=== PATIENT | male | born 1955 | race Caucasian/White ===

== ENCOUNTER 2017-04-03 05:26 | Inpatient (IN) | payer OTHER ==
[2017-04-03] VITALS (7 sets, daily range): BP systolic 117–135; BP diastolic 73–85; PULSE 113–119; RESP 18–24; TEMP 97.6–98.3; O2SAT 98–99
[~2017-04-03] VITALS: Ht 175.3 cm; Wt 84.5 kg
[~2017-04-03 05:26] MED LIST: ALBU6.7H INH; PROM6.257 PO; SULF-154 PO; Z.0.NO CURRENT MEDS
[2017-04-03] MEDS ORDERED: JANU50TA8 PO (05:35)
[2017-04-03] MEDS ORDERED: LISI10TA3 PO (05:35)
[2017-04-03] MEDS ORDERED: SODIUM CHLORIDE 0.9% FLUSH 10 ML FLUSH IVF PRN (06:45)
--- NOTE | 2017-04-03 07:00 | RADRPT ---
EXAM DATE/TIME: 04/03/2017 06:53 [place] COMPARISON: No previous studies available for comparison. INDICATIONS : Shortness of breath and chest pain MEDICAL HISTORY : None. SURGICAL HISTORY : None. ENCOUNTER: Initial ACUITY: 4 - 6 days PAIN SCORE: 7/10 LOCATION: Bilateral chest FINDINGS: A single view of the chest demonstrates the lungs to be symmetrically aerated without evidence of mas s, infiltrate or effusion. The cardiomediastinal contours are unremarkable. Osseous structures are intact. CONCLUSION: Normal examination. Chinmay Urrutia MD on April 03, 2017 at 6:58 Board Certified Radiologist. This report was verified electronically.
[2017-04-03 07:21] LABS: AUTOMATED NEUTROPHIL # 5.8 TH/MM3 (1.8-7.7); BASOPHIL # 0.1 TH/MM3 (0-0.2); BASOPHIL % 0.7 % (0.0-2.0); EOSINOPHIL # 0.2 TH/MM3 (0-0.4); EOSINOPHIL % 2.6 % (0.0-4.0); HEMATOCRIT 37.1 % (39.0-51.0); HEMO FLAGS DIFF FINAL; LYMPH % 9.6 % (9.0-44.0); LYMPHOCYTE # 0.7 TH/MM3 (1.0-4.8); MEAN CELL VOLUME 84.4 FL (80.0-100.0); MEAN CORPUSCULAR HEMOGLOBIN 26.8 PG (27.0-34.0); MEAN CORPUSCULAR HGB CONC 31.8 % (32.0-36.0); MONO % 12.2 % (0.0-8.0); NEUT % 74.9 % (16.0-70.0); PLATELET COUNT 306 TH/MM3 (150-450); RED CELL DISTRIBUTION WIDTH 14.9 % (11.6-17.2); WHITE BLOOD COUNT 7.7 TH/MM3 (4.0-11.0)
[2017-04-03] MEDS ORDERED: FUROSEMIDE 40 MG/4 ML VIAL IV PUSH ONE (07:30)
[2017-04-03] MEDS ORDERED: ASPIRIN 81 MG CHEW TAB CHEW ONE (07:30)
[2017-04-03 07:33] LABS: APTT (PATIENT) 26.6 SEC (24.3-30.1); INTERNATIONAL NORMALIZED RATIO 1.1 RATIO; PROTHROMBIN TIME - PATIENT 11.7 SEC (9.8-11.6)
[2017-04-03 07:44] LABS: ANION GAP 7 MEQ/L (5-15); AST (GOT) 21 U/L (15-37); BICARBONATE 23.9 MEQ/L (21.0-32.0); BLOOD UREA NITROGEN 25 MG/DL (7-18); CHLORIDE 111 MEQ/L (98-107); GLOMERULAR FILTRATION RATE 55 ML/MIN (>89); MAGNESIUM 1.9 MG/DL (1.5-2.5); POTASSIUM 4.3 MEQ/L (3.5-5.1); SODIUM (NA) 142 MEQ/L (136-145)
[2017-04-03] MEDS ORDERED: NITROGLYCERIN 2% OINT 1 GM PACKET TOPICAL ONE (07:45)
[2017-04-03 07:46] LABS: ALT (GPT) 35 U/L (12-78)
[2017-04-03 07:49] LABS: ALKALINE PHOSPHATASE 66 U/L (45-117); TOTAL BILIRUBIN ADULT 0.4 MG/DL (0.2-1.0)
[2017-04-03 07:52] LABS: CREATINE KINASE 81 U/L (39-308)
--- NOTE | 2017-04-03 08:11 | PD ---
HPI . Dyspnea Chief Complaint: Chest Pain Time Seen by Provider: 07:17 Travel History International Travel<30 days: No Contact w/Intl Traveler<30days: No Traveled to known affect area: No History of Present Illness HPI This patient presents with a two-week history of increasing dyspnea. The patient reports a two-week history of increasing dyspnea. He reports dyspnea on exertion and orthopnea. He also has swelling of his ankles. He denies chest pain. He denies any previous similar history. He also denies any history of hypertension, hypercholesterolemia or heart disease. He states that his only underlying medical history is diabetes. Symptoms are moderate. No relieving factor. PFSH Past Medical History Diabetes: Yes (NIDDM) Patient Takes Glucophage: No Diminished Hearing: No Tetanus Vaccination: Unknown Influenza Vaccination: No Past Surgical History Surgical History: No Previous Surgery Social History Alcohol Use: Yes (PT STATES "OCCASIONAL") Tobacco Use: No Substance Use: No Allergies-Medications (Allergen,Severity, Reaction): Coded Allergies: No Known Allergies (Verified , 04/03/17) Reported Meds & Prescriptions Reported Meds & Active Scripts Active Reported Lisinopril 10 Mg Tab 10 Mg PO DAILY Janumet (Sitagliptin-Metformin) 50-1,000 Mg Tab 1 Tab PO BID Review of Systems Except as stated in HPI: all other systems reviewed are Neg General / Constitutional: No: Fever, Chills Cardiovascular: No: Chest Pain or Discomfort Respiratory: Positive: Shortness of Breath, Orthopnea Gastrointestinal: No: Nausea, Vomiting, Diarrhea Musculoskeletal: Positive: Edema Physical Exam Narrative GENERAL: Patient is awake and alert and able to speak in complete sentences without respiratory distress. SKIN: Warm and dry. HEAD: Atraumatic. Normocephalic. EYES: Pupils equal and round. Extraocular movements are intact. ENT: No nasal bleeding or discharge. Mucous membranes pink and moist. NECK: Trachea midline. Neck is supple. CARDIOVASCULAR: Regular rate and rhythm. Heart sounds are normal. RESPIRATORY: No accessory muscle use. Sats are 93% on room air. His lungs sound clear but diminished. GASTROINTESTINAL: Abdomen soft. Nontender. Bloated appearing. MUSCULOSKELETAL: No obvious deformities. Trace pedal edema. NEUROLOGICAL: Awake and alert. No obvious cranial nerve deficits. Motor grossly within normal limits. Normal speech. PSYCHIATRIC: Appropriate mood and affect; insight and judgment normal. Data Data Last Documented VS Vital Signs Date Time Temp Pulse Resp B/P (MAP) Pulse Ox O2 Delivery O2 Flow Rate FiO2 04/03/17 08:26 114 18 131/82 (98) 99 Room Air 04/03/17 05:30 97.6 Orders Orders Complete Blood Count With Diff (04/03/17 06:42) Comprehensive Metabolic Panel (04/03/17 06:42) B-Type Natriuretic Peptide (04/03/17 06:42) Act Partial Throm Time (Ptt) (04/03/17 06:42) Prothrombin Time / Inr (Pt) (04/03/17 06:42) Magnesium (Mg) (04/03/17 06:42) Ckmb (Isoenzyme) Profile (04/03/17 06:42) Troponin I (04/03/17 06:42) Iv Access Insert/Monitor (04/03/17 06:42) Electrocardiogram (04/03/17 06:42) Ecg Monitoring (04/03/17 06:42) Oximetry (04/03/17 06:42) Oxygen Administration (04/03/17 06:42) Chest, Single Ap (04/03/17 06:42) Sodium Chloride 0.9% Flush (Ns Flush) (04/03/17 06:45) Furosemide Inj (Lasix Inj) (04/03/17 07:30) Aspirin Chew (Aspirin Chew) (04/03/17 07:30) Nitroglycerin 2% Oint (Nitroglycerin 2% (04/03/17 07:45) Labs Laboratory Tests Test 04/03/17 07:08 White Blood Count 7.7 TH/MM3 Red Blood Count 4.40 MIL/MM3 Hemoglobin 11.8 GM/DL Hematocrit 37.1 % Mean Corpuscular Volume 84.4 FL Mean Corpuscular Hemoglobin 26.8 PG Mean Corpuscular Hemoglobin Concent 31.8 % Red Cell Distribution Width 14.9 % Platelet Count 306 TH/MM3 Mean Platelet Volume 7.9 FL Neutrophils (%) (Auto) 74.9 % Lymphocytes (%) (Auto) 9.6 % Monocytes (%) (Auto) 12.2 % Eosinophils (%) (Auto) 2.6 % Basophils (%) (Auto) 0.7 % Neutrophils # (Auto) 5.8 TH/MM3 Lymphocytes # (Auto) 0.7 TH/MM3 Monocytes # (Auto) 0.9 TH/MM3 Eosinophils # (Auto) 0.2 TH/MM3 Basophils # (Auto) 0.1 TH/MM3 CBC Comment DIFF FINAL Differential Comment Prothrombin Time 11.7 SEC Prothromb Time International Ratio 1.1 RATIO Activated Partial Thromboplast Time 26.6 SEC Blood Urea Nitrogen 25 MG/DL Creatinine 1.31 MG/DL Random Glucose 140 MG/DL Total Protein 7.1 GM/DL Albumin 3.3 GM/DL Calcium Level 8.8 MG/DL Magnesium Level 1.9 MG/DL Alkaline Phosphatase 66 U/L Aspartate Amino Transf (AST/SGOT) 21 U/L Alanine Aminotransferase (ALT/SGPT) 35 U/L Total Bilirubin 0.4 MG/DL Sodium Level 142 MEQ/L Potassium Level 4.3 MEQ/L Chloride Level 111 MEQ/L Carbon Dioxide Level 23.9 MEQ/L Anion Gap 7 MEQ/L Estimat Glomerular Filtration Rate 55 ML/MIN Total Creatine Kinase 81 U/L Troponin I 0.06 NG/ML B-Type Natriuretic Peptide 1253 PG/ML [facility] Medical Decision Making Medical Screen Exam Complete: Yes Emergency Medical Condition: Yes Interpretation(s) EKG shows a sinus rhythm with diffuse T wave inversion in the anterior leads. This T-wave inversion is new when compared to his most recent available EKG which was in 2009. Differential Diagnosis Differential diagnosis of dyspnea includes but is not limited to congestive heart failure, pneumonia, wheezing, pneumothorax, pulmonary embolism Narrative Course This patient presents with a chief complaint of dyspnea including orthopnea and dyspnea on exertion which has been getting progressively worse for the last 2 weeks. I have empirically ordered aspirin, oxygen, Lasix and nitroglycerin. CBC & BMP Diagram 04/03/17 07:08 Total Protein 7.1, Albumin 3.3 L, Calcium Level 8.8, Magnesium Level 1.9, Alkaline Phosphatase 66, Aspartate Amino Transf (AST/SGOT) 21, Alanine Aminotransferase (ALT/SGPT) 35, Total Bilirubin 0.4 BNP is 1253. Troponin is 0.06. Last Impressions Chest X-Ray 04/03/17 0642 Signed Impressions: Service Date/Time: Monday, April 03, 2017 06:53 - CONCLUSION: Normal examination. Chinmay Urrutia MD I have independently reviewed the chest x-ray. To me, he has changes compatible with early pulmonary edema. This patient will be admitted for new onset CHF. Critical Care Narrative Aggregate critical care time was 30 minutes. Time to perform other separately billable procedures was not included in the critical care time. My time did not include minutes spent treating any other patients simultaneously or on activities that did not directly contribute to the patient's treatment. The services I provided to this patient were to treat and/or prevent clinically significant deterioration due to dyspnea, pulmonary edema I provided critical care services requiring my management, as noted below: Chart data review, documentation time, medication orders and management, vital sign assessments/reviewing monitor data, ordering and reviewing lab tests, ordering and interpreting/reviewing x-rays and diagnostic studies, care of the patient and discussion of the patient with the admitting physicians Diagnosis Primary Impression: Pulmonary edema Qualified Codes: J81.0 - Acute pulmonary edema Additional Impression: Elevated troponin Admitting Information Admitting Physician Requests: Admit Condition: Stable Dorene Charles MD Apr 03, 2017 08:11
[2017-04-03] MEDS ORDERED: DEXTROSE 50% IN WATER 50 ML VIAL(D50) IV PRN (09:45)
[2017-04-03] MEDS ORDERED: SODIUM CHLORIDE 0.9% FLUSH 10 ML FLUSH IV FLUSH PRN (09:45)
[2017-04-03] MEDS ORDERED: GLUCAGON 1 MG/ML VIAL OTHER PRN (09:45)
[2017-04-03] MEDS: ASPIRIN 81 MG CHEW TAB CHEW SCH (10:00)
[2017-04-03] MEDS: ENOXAPARIN SODIUM 40 MG/0.4 ML SYRINGE SQ SCH (10:00)
[2017-04-03] MEDS: INSULIN ASPART SUPPLEMENTAL SCALE SQ SCH ×3 (11:00→20:25)
--- NOTE | 2017-04-03 15:34 | EKG ---
Date Performed: 04/03/2017 Time Performed: 06:52:56 PTAGE: 61 years EKG: SINUS TACHYCARDIA MARKED RIGHT AXIS DEVIATION RIGHT BUNDLE BRANCH BLOCK ANTEROSEPTAL MYOCAR DIAL INFARCTION ABNORMAL ECG Compared to the PREVIOUS TRACING R AXIS, RBBB AND FASTER RATE PRESENT DOCTOR: João Herrmann Interpretating Date/Time 04/03/2017 15:34:09
[2017-04-03] MEDS: FUROSEMIDE 40 MG/4 ML VIAL IVP SCH (17:11)
--- NOTE | 2017-04-03 18:53 | MB ---
cc: RIO GERMAN MD DATE OF CONSULTATION 04/03/17 Sylvain is a very pleasant 61-year gentleman with no cardiac history in the past who has developed increasing dyspnea on exertion, lower extremity edema for two weeks prior to admission. He also notes some chest tightness related to the dyspnea. He otherwise denies any fevers, chills, cough, GI or bleeding, PND, orthopnea, syncope or dizziness. PAST MEDICAL HISTORY Denies hypertension and hyperlipidemia. He does have a history of diabetes. SOCIAL HISTORY Drinks alcohol occasionally. Denies tobacco use. ALLERGIES None. MEDICATIONS Prior to admission, 1. Lisinopril 10 2. Janumet In the hospital, 1. Potassium 20 mEq b.i.d. 2. Lasix 40 IV b.i.d. 3. Aspirin 81 mg daily. 4. Lovenox 40 subcu q.24 h. PHYSICAL EXAMINATION VITAL SIGNS: Blood pressure 119/78, pulse ranging between 113 and 117, temperature 98.0, respiratory rate 20, sats 98% on room air. GENERAL: He is alert and oriented times three in no acute distress NECK: Supple. No JVD or bruit. CARDIOVASCULAR: S1, S2. No murmurs, rubs or gallops. LUNGS: Clear to auscultation bilaterally ABDOMEN: Soft, nontender, nondistended with positive bowel sounds EXTREMITIES No lower extremity edema. IMAGING STUDIES Chest x-ray - Normal examination. CARDIOLOGY STUDIES EKG shows sinus tachycardia at 111 beats per minute, right bundle-branch block, anteroseptal Q-waves, T-wave inversion V1, V2, V3, V4. LABORATORY DATA White count 7.7, hemoglobin 11.8, hematocrit 37.1, platelet count 306. Sodium 142, potassium 4.3, chloride 111, BUN 25, creatinine 1.31, glucose 140, troponin is 0.06 and 0.06. BNP is 1253. Albumin 3.3, INR is 1.1. DIAGNOSES 1. Non STEMI 2. Congestive heart failure 3. [place] Heart Associated class II-III to three congestive heart failure 4. [place] Cardiovascular Society class IV angina 5. Diabetes mellitus 6. Acute renal failure and/or chronic renal insufficiency. There is no baseline to compare. 7. Hyperglycemia 8. Anemia. DISCUSSION The patient is currently asymptomatic. He is feeling better with diuresis. Recommend follow up BNP, continue diuresis. I have recommended a right heart catheterization and left heart catheterization to the patient in the presence of his . I have explained to the patient that the risk of cath PCI is a 5-10% chance of , stroke, heart attack, bleeding, infection, need for bypass surgery, need for surgery, need for blood transfusion, need for dialysis, bleeding, infection, anaphylaxis and arrhythmia. The patient is currently undecided. I do think catheterization is indicated due to the patient's high pretest probability for significant coronary disease as well as his elevated troponin. MD ROSALEE Jiménez/ /5:57 PM /6:26 PM
[2017-04-03] MEDS ORDERED: ACETAMINOPHEN 325 MG TAB PO PRN (20:00)
[2017-04-03] MEDS: SODIUM CHLORIDE 0.9% FLUSH 10 ML FLUSH IV FLUSH SCH (20:26)
[2017-04-03] MEDS: POTASSIUM CHLORIDE 20 MEQ CONTROLLED RELEASE TAB PO SCH (20:26)
[2017-04-04] VITALS (7 sets, daily range): BP systolic 116–133; BP diastolic 64–82; PULSE 83–122; RESP 18–20; TEMP 97.5–98.4; O2SAT 97–98
[2017-04-04] MEDS: INSULIN ASPART SUPPLEMENTAL SCALE SQ SCH ×4 (06:14→21:45)
[2017-04-04] MEDS: SODIUM CHLORIDE 0.9% FLUSH 10 ML FLUSH IV FLUSH SCH ×2 (09:16→21:37)
[2017-04-04] MEDS: POTASSIUM CHLORIDE 20 MEQ CONTROLLED RELEASE TAB PO SCH ×2 (09:16→21:37)
[2017-04-04] MEDS: ASPIRIN 81 MG CHEW TAB CHEW SCH (09:16)
[2017-04-04] MEDS: FUROSEMIDE 40 MG/4 ML VIAL IVP SCH (09:16)
[2017-04-04] MEDS: ENOXAPARIN SODIUM 40 MG/0.4 ML SYRINGE SQ SCH (09:17)
[2017-04-04 11:03] LABS: BICARBONATE 27.9 MEQ/L (21.0-32.0); POTASSIUM 4.2 MEQ/L (3.5-5.1)
[2017-04-04 11:15] LABS: MAGNESIUM 1.9 MG/DL (1.5-2.5)
--- NOTE | 2017-04-04 11:56 | PD.CARD.PN ---
Subjective Subjective Remarks alert in nad Objective Vital Signs / I&O Vital Signs Date Time Temp Pulse Resp B/P (MAP) Pulse Ox O2 Delivery O2 Flow Rate FiO2 04/04/17 09:22 112 04/04/17 08:00 97.5 108 20 119/79 (92) 97 04/04/17 04:00 98.0 115 18 129/81 (97) 98 04/04/17 00:00 98.4 116 18 133/70 (91) 97 04/03/17 20:00 97.7 119 20 132/79 (96) 99 04/03/17 20:00 117 04/03/17 16:00 98.3 115 20 117/73 (88) 98 04/03/17 13:08 04/03/17 13:00 98.0 113 20 119/78 (92) 98 04/03/17 12:26 18 98 Room Air I/O 04/03/17 04/03/17 04/03/17 04/04/17 04/04/17 04/04/17 07:00 15:00 23:00 07:00 15:00 23:00 Intake Total 360 ml 500 ml Output Total 680 ml 750 ml 1700 ml Balance -680 ml -390 ml -1200 ml Intake Oral 360 ml 500 ml Output Urine Total 680 ml 750 ml 1700 ml # Voids 1 Laboratory GENERAL: SKIN: Warm and dry. HEAD: Normocephalic. EYES: No scleral icterus. No injection or drainage. NECK: Supple, trachea midline. No JVD or lymphadenopathy. CARDIOVASCULAR: Regular rate and rhythm without murmurs, gallops, or rubs. RESPIRATORY: Breath sounds equal bilaterally. No accessory muscle use. GASTROINTESTINAL: Abdomen soft, non-tender, nondistended. MUSCULOSKELETAL: No cyanosis, or edema. BACK: Nontender without obvious deformity. No CVA tenderness. Laboratory Tests Test 04/03/17 12:34 04/04/17 09:33 Troponin I 0.06 NG/ML Blood Urea Nitrogen 28 MG/DL Creatinine 1.53 MG/DL Random Glucose 209 MG/DL Calcium Level 9.0 MG/DL Magnesium Level 1.9 MG/DL Sodium Level 144 MEQ/L Potassium Level 4.2 MEQ/L Chloride Level 107 MEQ/L Carbon Dioxide Level 27.9 MEQ/L Anion Gap 9 MEQ/L Estimat Glomerular Filtration Rate 46 ML/MIN B-Type Natriuretic Peptide 1323 PG/ML Assessment and Plan Problem List: (1) CHF (congestive heart failure) ICD Codes: I50.9 - Heart failure, unspecified (2) NSTEMI (non-ST elevated myocardial infarction) ICD Codes: I21.4 - Non-ST elevation (NSTEMI) myocardial infarction (3) Pulmonary edema ICD Codes: J81.1 - Chronic pulmonary edema Status: Acute (4) Elevated troponin ICD Codes: R74.8 - Abnormal levels of other serum enzymes Status: Acute Assessment and Plan 1.) NSTEMI/chf - rhc/lhc scheduled for 04/05/17, f/u bnp/bmp Problem Qualifiers (1) Pulmonary edema: Qualified Codes: J81.0 - Acute pulmonary edema Cb Asif MD Apr 04, 2017 11:56
[2017-04-04 13:18] LABS: HEMATOCRIT 34.8 % (39.0-51.0); MEAN CELL VOLUME 83.8 FL (80.0-100.0); MEAN CORPUSCULAR HEMOGLOBIN 27.3 PG (27.0-34.0); MEAN CORPUSCULAR HGB CONC 32.6 % (32.0-36.0); PLATELET COUNT 309 TH/MM3 (150-450); RED BLOOD COUNT 4.15 MIL/MM3 (4.50-5.90); RED CELL DISTRIBUTION WIDTH 14.9 % (11.6-17.2); REVIEW FLAG FINAL; WHITE BLOOD COUNT 7.6 TH/MM3 (4.0-11.0)
--- NOTE | 2017-04-04 15:05 | ECHRPT ---
Indication: Heart failure, unspecified CONCLUSIONS The left ventricular systolic function is severely reduced with an estimated ejection fraction in th e range of 30-35%. Normal left ventricular size. Mild concentric left ventricular hypertrophy. The left atrial size is mildly dilated. Mild mitral valve regurgitation. No aortic valve regurgitation. No aortic valve stenosis. There is mild tricuspid valve regurgitation. There is estimated severe pulmonary hypertension present ( > 70 mmHg). The pulmonary valve is not well visualized. BP: / HR: Rhythm: MEASUREMENTS (Male / Female) Normal Values Technical Quality:Good 2D ECHO LV Diastolic Diameter PLAX 4.6 cm 4.2 - 5.9 / 3.9 - 5.3 cm LV Systolic Diameter PLAX 4.1 cm IVS Diastolic Thickness 1.2 cm 0.6 - 1.0 / 0.6 - 0.9 cm LVPW Diastolic Thickness 1.1 cm 0.6 - 1.0 / 0.6 - 0.9 cm LV Relative Wall Thickness 0.5 RV Internal Dim ED PLAX 3.3 cm M-MODE Aortic Root Diameter MM 3.2 cm LA Systolic Diameter MM 4.8 cm LA Ao Ratio MM 1.5 AV Cusp Separation MM 1.9 cm DOPPLER TR Peak Velocity 396.0 cm/s TR Peak Gradient 62.7 mmHg FINDINGS LEFT VENTRICLE The left ventricular systolic function is severely reduced with an estimated ejection fraction in th e range of 30-35%. Normal left ventricular size. Mild concentric left ventricular hypertrophy. RIGHT VENTRICLE Normal right ventricular size and systolic function. LEFT ATRIUM The left atrial size is mildly dilated. RIGHT ATRIUM The right atrial size is normal. ATRIAL SEPTUM Normal atrial septal thickness without atrial level shunting by limited color doppler interrogation. AORTA The aortic root and proximal ascending aorta are normal in size on limited imaging. MITRAL VALVE Structurally normal mitral valve. Mild mitral valve regurgitation. AORTIC VALVE Trileaflet aortic valve. No aortic valve regurgitation. No aortic valve stenosis. TRICUSPID VALVE Structurally normal tricuspid valve. There is mild tricuspid valve regurgitation. There is estimated severe pulmonary hypertension present ( > 70 mmHg). PULMONARY VALVE The pulmonary valve is not well visualized. VESSELS The inferior vena cava is normal in size. PERICARDIUM No pericardial effusion. Efrem Zacarias MD (Electronically Signed) Final Date:04 April 2017 15:04
--- NOTE | 2017-04-04 16:07 | HHI.PR ---
Subjective History of Present Illness Feels better today Making good urine Breathing is better Denies chest pain No fever or chills Occasional cough No nausea or vomiting Good appetite Offers no other complaints Vitals/Results Vital Signs Vital Signs Date Time Temp Pulse Resp B/P (MAP) Pulse Ox O2 Delivery O2 Flow Rate FiO2 04/04/17 12:00 97.8 117 20 116/64 (81) 98 04/04/17 09:22 112 04/04/17 08:00 97.5 108 20 119/79 (92) 97 04/04/17 04:00 98.0 115 18 129/81 (97) 98 04/04/17 00:00 98.4 116 18 133/70 (91) 97 04/03/17 20:00 97.7 119 20 132/79 (96) 99 04/03/17 20:00 117 CBC/BMP: 04/04/17 1302 04/04/17 0933 Lab Results Laboratory Tests Test 04/04/17 09:33 04/04/17 13:02 Blood Urea Nitrogen 28 MG/DL Creatinine 1.53 MG/DL Random Glucose 209 MG/DL Calcium Level 9.0 MG/DL Magnesium Level 1.9 MG/DL Sodium Level 144 MEQ/L Potassium Level 4.2 MEQ/L Chloride Level 107 MEQ/L Carbon Dioxide Level 27.9 MEQ/L Anion Gap 9 MEQ/L Estimat Glomerular Filtration Rate 46 ML/MIN B-Type Natriuretic Peptide 1323 PG/ML White Blood Count 7.6 TH/MM3 Red Blood Count 4.15 MIL/MM3 Hemoglobin 11.3 GM/DL Hematocrit 34.8 % Mean Corpuscular Volume 83.8 FL Mean Corpuscular Hemoglobin 27.3 PG Mean Corpuscular Hemoglobin Concent 32.6 % Red Cell Distribution Width 14.9 % Platelet Count 309 TH/MM3 Mean Platelet Volume 8.4 FL Physical Exam General General Appearance: No Acute Distress, Comfortable, Obese Eyes Eye Exam: Pupils Equal, Sclera White Ears & Nose Ears & Nose Exam: Nasal Mucosa [place] Throat Throat Exam: Oral Mucosa [place] & Moist Neck Neck Exam: Neck Supple, Trachea Midline Pulmonary Resp Exam: Clear Bilaterally, Breath Sounds Equal, No Distress Cardiology CV Exam: Regular, Normal Sinus Rhythm Gastrointestinal/Abdomen GI Exam: Soft, Non-Tender, Bowel Sounds Present Musculoskeletal MS Exam: Joints Intact, Normal Tone Integumentary Skin Exam: Warm, Dry Extremeties Extremities Exam: No Edema, Pedal Pulses Palpable Neurologic Neuro Exam: Alert, Awake, Oriented, Speech Clear, Moving All Extremities Psychiatric Psych Exam: Appropriate Responses VTE Prophylaxis VTE Prophylaxis Meds: Lovenox PUD Prophylasis PUD Prophylaxis: Zantac Assessment/Plan Assessment/Plan ASSESMENT New Onset/ Acute CHF exacerbation HTN DM CKD stage III Pulmonary hypertension, severe,? Etiology PLAN O2 Fluid restriction 1400cc/day strict Is & Os DC IV diuretic , start by mouth diuretics trop noted 2 DEcho decreased LVF , EF 30 to 35 % Mild Conc LVH mildly dilated Left atrium severe pulmonary HTN /70mmhg card input appreciated , for left heart catheterization in am f./u renal function Pepcid for GI protection Subcutaneous Lovenox for DVT prophylaxis discussed patient in detail/answered all of his questions A.m. labs We'll follow Ngozi Díaz MD Apr 04, 2017 16:07
[2017-04-04] MEDS: FAMOTIDINE 20 MG TAB PO SCH (21:36)
[2017-04-05] VITALS (14 sets, daily range): BP systolic 103–143; BP diastolic 60–93; PULSE 90–126; RESP 16–20; TEMP 97.2–98.3; O2SAT 96–99
[2017-04-05] MEDS: INSULIN ASPART SUPPLEMENTAL SCALE SQ SCH ×4 (05:53→21:19)
[2017-04-05 06:14] LABS: HEMATOCRIT 36.6 % (39.0-51.0); MEAN CELL VOLUME 83.5 FL (80.0-100.0); MEAN CORPUSCULAR HGB CONC 32.3 % (32.0-36.0); PLATELET COUNT 326 TH/MM3 (150-450); RED BLOOD COUNT 4.38 MIL/MM3 (4.50-5.90); REVIEW FLAG FINAL; WHITE BLOOD COUNT 9.5 TH/MM3 (4.0-11.0)
[2017-04-05 07:09] LABS: BICARBONATE 29.6 MEQ/L (21.0-32.0); POTASSIUM 4.4 MEQ/L (3.5-5.1)
--- NOTE | 2017-04-05 08:42 | MH ---
cc: DAMIEN CABALLERO MD DATE OF ADMISSION 04/03/2017 CHIEF COMPLAINT The patient came to the emergency room complaining of progressive shortness of breath of about two weeks duration. HISTORY OF PRESENT ILLNESS This is a very pleasant 61 year old male with prior history of diabetes, hypertension and possible diabetic nephropathy. The patient was in his usual state of health until about two weeks ago when he started noticing shortness of breath, usually upon exertion. The patient reported that he is active in his job and says he has to walk many miles in a day. However, lately he started noticing that every time he started to walk, he would get short of breath which is gradually getting worse. He has to stand and rest for a short period of time before he could walk further. This is gradually getting worse. He reports orthopnea, has been sleeping propped up using four pillows at night time. He also reports he has had some paroxysmal nocturnal dyspnea. Lately, he has had a difficult time sleeping at night due to shortness of breath. He denies chest pain but has some episodes of tightness in the chest when he breathing heavy. He denies sweating or diaphoresis, denies fevers, chills or night sweats. He has occasional cough. He also reports increasing abdominal girth and ankle edema. With these progressive symptoms, he got concerned and his forced him to come to the hospital. Upon arrival, he was noted to be hemodynamically stable. He was tachycardic. EKG shows sinus tachycardia. His troponin I was borderline at 0.06. His creatinine is up at 1.31 and GFR 55. His BNP was high at 1,253. The patient was given a dose of IV Lasix. Recommendation was given by emergency room physician for patient to be admitted to the hospital. PAST MEDICAL HISTORY 1. Diabetes mellitus type 2 2. Diabetic nephropathy and possible chronic kidney disease 3. Mild hypertension. 4. Obesity. PAST SURGICAL HISTORY The patient denies any major operations. SOCIAL HISTORY The patient denies smoking, drinks alcohol socially and occasionally. Denies any drug abuse. He is , lives with his . ALLERGIES NO KNOWN DRUG ALLERGIES MEDICATIONS Home, 1. Lisinopril 10 mg daily 2. Janumet once tablet twice daily FAMILY HISTORY Both parents are . Mother in the mid 80s. She was diabetic. Cause of is unknown. Dad in late 80s. He had chronic obstructive pulmonary disease. He has two brothers and one sister. One of the brothers is diabetic. REVIEW OF SYSTEMS The patient denies headache, loss of vision, double vision. Denies change in hearing. Denies nasal congestion or sinus headaches. Denies sore throat, dysphagia or odynophagia. He has mild occasional cough. Denies sputum production. Denies hemoptysis or hematemesis. He has good appetite. Denies changes in bowel pattern. Denies melena or bright red blood per rectum. Denies dysuria or hematuria. The remainder of review of systems is negative for 12 systems except what is mentioned. PHYSICAL EXAMINATION GENERAL: A middle aged, obese male lying in bed not in any acute distress, awake, alert, oriented times three. VITAL SIGNS: Upon arrival, blood pressure 137/87, pulse 117, respirations 24, temperature 97.6, O2 saturation 98%. HEENT: Head normocephalic, atraumatic. Extraocular movements are intact. Pupils rounds and reactive. ENT - No throat congestion, no oral ulcers or thrush. Ears clear. NECK: Supple. No jugular venous distention. CARDIOVASCULAR: Sounds audible, regular rhythm. The patient is tachycardic. No rub. No murmur appreciated. RESPIRATORY: Distant breath sounds, bilateral air entry, no obvious rhonchi, faint basal crackles. GASTROINTESTINAL: Abdomen soft, protuberant, bulky, nontender, positive bowel sounds. No hepatosplenomegaly appreciated. EXTREMITIES: The patient has bilateral mild ankle edema. Both feet are warm to touch. Homans sign is negative. NEUROLOGIC: He is oriented times three, no facial asymmetry. Moving all four extremities. LABORATORY DATA WBC count 7.7, hemoglobin 11.8, hematocrit 37.1, platelet count of 304, MCV 84.4. Sodium 142, potassium 4.3, chloride 111, bicarb 23.9, BUN ___, creatinine 1.3, glucose 140, calcium 8.8, liver function tests unremarkable. CPK 81, troponin I 0.06. BNP was elevated at 1253. Total protein 7.1, albumin 3.3. PT 11.7, INR 1.1, PTT 26.6. IMAGING STUDIES Portable chest x-ray was done that shows clear lung moreira, no infiltrate or effusion. CARDIOLOGY STUDIES Electrocardiogram shows sinus tachycardia with right bundle branch block pattern and right ST deviation. ASSESSMENT 1. Dyspnea on exertion, orthopnea, paroxysmal nocturnal dyspnea in this middle aged jason with history of chronic obstructive pulmonary disease, symptoms suggestive of possible congestive heart failure. No ischemic, not myocardial infarction. No positive heart disease. 2. Diabetes type 2 3. Renal insufficiency suspect chronic kidney disease due to underlying diabetic nephropathy. 4. Mild hypertension 5. Mild anemia PLAN The patient is admitted to the hospital. We will put him on oxygen here. We will put him on fluid restriction 400 mL per day. Start him on IV Lasix. Check cardiac enzymes. Obtain an echocardiogram. 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 Put him on a diabetic diet. Hold Metformin at this time. He will receive insulin sliding scale coverage. Pepcid for GI protection, subcu Lovenox for deep venous thrombosis prophylaxis. Control blood pressure and monitor renal function and electrolytes. Discussed the findings with the patient and his . I have answered all of their questions. They verbalized understanding. Patient meets Inpatient criteria , He needs treatment of Congestive heart failure & also need further investigation to rule out coronary artery disease. He might need cardiac intervention. Expected length of stay is about 2-4 days, possible discharge home when stable. MD KONG Fournier/ /4:19 PM /8:30 AM MAO
[2017-04-05] MEDS: SODIUM CHLORIDE 0.9% FLUSH 10 ML FLUSH IV FLUSH SCH ×2 (09:00→21:10)
[2017-04-05] MEDS: POTASSIUM CHLORIDE 20 MEQ CONTROLLED RELEASE TAB PO SCH (09:33)
[2017-04-05] MEDS: ENOXAPARIN SODIUM 40 MG/0.4 ML SYRINGE SQ SCH (09:33)
[2017-04-05] MEDS: ASPIRIN 81 MG CHEW TAB CHEW SCH (09:35)
--- NOTE | 2017-04-05 11:40 | HHI.PR ---
Subjective Subjective Remarks Resting in the bed Vital signs monitored, heart rate labile between 90 and 122 with activity Pending heart catheter today Decreased breath sounds in bases bilateral (Laura Mata) Review of Systems Constitutional Constitutional: Fatigue, Weakness Constitutional Remarks 10 point ROS done positives noted (Laura Mata) Pulmonary Respiratory: Shortness of Breath (shortness of breath especially with activity) (Laura Mata) Cardiology CV: Chest Pain (controlled) (Laura Mata) Musculoskeletal MS: Weakness (Laura Mata) Psychiatric Psychiatric: Normal Mood, Anxiety (mild) (Laura Mata) Vitals/Results Intake & Output 04/05/17 04/05/17 04/06/17 15:00 23:00 07:00 Intake Total 5 ml Balance 5 ml IV Total 5 ml Vital Signs Vital Signs Date Time Temp Pulse Resp B/P (MAP) Pulse Ox O2 Delivery O2 Flow Rate FiO2 04/05/17 09:30 92 04/05/17 08:00 97.2 117 16 122/89 (100) 98 04/05/17 04:00 97.5 90 20 125/85 (98) 96 04/05/17 00:00 97.6 102 20 130/80 (97) 96 04/04/17 20:00 98.1 122 20 121/78 (92) 97 04/04/17 20:00 120 04/04/17 16:00 98.2 113 20 122/82 (95) 97 04/04/17 12:00 97.8 117 20 116/64 (81) 98 (Laura Mata) CBC/BMP: 04/05/17 0545 04/05/17 0545 Lab Results Laboratory Tests Test 04/04/17 13:02 04/05/17 05:45 White Blood Count 7.6 TH/MM3 9.5 TH/MM3 Red Blood Count 4.15 MIL/MM3 4.38 MIL/MM3 Hemoglobin 11.3 GM/DL 11.8 GM/DL Hematocrit 34.8 % 36.6 % Mean Corpuscular Volume 83.8 FL 83.5 FL Mean Corpuscular Hemoglobin 27.3 PG 27.0 PG Mean Corpuscular Hemoglobin Concent 32.6 % 32.3 % Red Cell Distribution Width 14.9 % 15.0 % Platelet Count 309 TH/MM3 326 TH/MM3 Mean Platelet Volume 8.4 FL 8.4 FL Blood Urea Nitrogen 30 MG/DL Creatinine 1.44 MG/DL Random Glucose 155 MG/DL Calcium Level 8.9 MG/DL Sodium Level 143 MEQ/L Potassium Level 4.4 MEQ/L Chloride Level 107 MEQ/L Carbon Dioxide Level 29.6 MEQ/L Anion Gap 6 MEQ/L Estimat Glomerular Filtration Rate 50 ML/MIN B-Type Natriuretic Peptide 1184 PG/ML Imaging Remarks Last Impressions Chest X-Ray 04/03/17 0642 Signed Impressions: Service Date/Time: Monday, April 03, 2017 06:53 - CONCLUSION: Normal examination. Chinmay Urrutia MD (Laura Mata M. PUBLIC SERVICE ADMINISTRATOR) Physical Exam General General Appearance: No Acute Distress, Comfortable, Obese (Adolfo,Laura M. PUBLIC SERVICE ADMINISTRATOR) Eyes Eye Exam: Pupils Equal, Sclera White (Adolfo,Susan M. PUBLIC SERVICE ADMINISTRATOR) Ears & Nose Ears & Nose Exam: Nasal Mucosa [place] ([place],Laura M. PUBLIC SERVICE ADMINISTRATOR) Throat Throat Exam: Oral Mucosa [place] & Moist ([place],Laura M. PUBLIC SERVICE ADMINISTRATOR) Neck Neck Exam: Neck Supple, Trachea Midline ([place],Laura M. PUBLIC SERVICE ADMINISTRATOR) Pulmonary Resp Exam: Clear Bilaterally, Breath Sounds Equal, No Distress, Decreased Bases , Diminished Breath Sounds (Adolfo,Laura M. PUBLIC SERVICE ADMINISTRATOR) Cardiology CV Exam: Regular, Normal Sinus Rhythm (Adolfo,Laura M. PUBLIC SERVICE ADMINISTRATOR) Gastrointestinal/Abdomen GI Exam: Soft, Non-Tender, Bowel Sounds Present (Adolfo,Laura M. PUBLIC SERVICE ADMINISTRATOR) Musculoskeletal MS Exam: Joints Intact, Normal Tone (Adolfo,Laura M. PUBLIC SERVICE ADMINISTRATOR) Integumentary Skin Exam: Warm, Dry ([place],Laura M. PUBLIC SERVICE ADMINISTRATOR) Extremeties Extremities Exam: No Edema, Pedal Pulses Palpable ([place],Laura M. PUBLIC SERVICE ADMINISTRATOR) Neurologic Neuro Exam: Alert, Awake, Oriented, Speech Clear, Moving All Extremities (AdolfoLaura M. PUBLIC SERVICE ADMINISTRATOR) Psychiatric Psych Exam: Appropriate Responses (Adolfo,Susan M. PUBLIC SERVICE ADMINISTRATOR) VTE Prophylaxis VTE Prophylaxis Meds: Lovenox ([place],Laura M. PUBLIC SERVICE ADMINISTRATOR) PUD Prophylasis PUD Prophylaxis: Zantac (Laura Mata) Assessment/Plan Assessment/Plan ASSESMENT New Onset/ Acute CHF exacerbation Fluid restriction, intake and output, now on by mouth Lasix, O2, Appreciate cardiac input, pending heart cath today, continues with some decreased breath sounds, [id number], 2-D echo EF low, pending heart catheterization HTN Medical management, early controlled DM Accu-Cheks before meals and at bedtime with ADA diet and plan for controll CKD stage III Monitor labs, may need renal involvement, anemia probably secondary to this chronic disease, no acute blood loss noted Pulmonary hypertension, unspecified Follow needs, post heart catheter today Pepcid PUD prophylaxis Lovenox for DVT prophylaxis Discussed with patient Discussed with nurse Discussed with Dr. Díaz, seen on his behalf (Laura Mata) Assessment/Plan pt is seen & examined d/w PT d/w Laura see Orders start BB/ALISA-i change Lasix to po for LHC today am labs will f/u (Ngozi Díaz MD) Laura Mata Apr 05, 2017 11:40 Ngozi Díaz MD Apr 05, 2017 12:54
[2017-04-05] MEDS ORDERED: CARVEDILOL 3.125 MG TAB PO ONE ×2 (13:00→23:15)
[2017-04-05] MEDS ORDERED: LISINOPRIL 5 MG TAB PO ONE (13:00)
[2017-04-05] MEDS ORDERED: PILL SPLITTER OTHER PRN (13:45)
[2017-04-05] MEDS ORDERED: IOHEXOL 350 MG/ML 100 ML BTL (for Cath Lab) OTHER ONE (13:50)
[2017-04-05] MEDS ORDERED: MIDAZOLAM HCL 2 MG/2 ML VIAL ONE (13:51)
[2017-04-05] MEDS ORDERED: HEPARIN-NS/PF INJ 500 ML ONE ×2 (13:51→14:40)
[2017-04-05] MEDS ORDERED: HEPARIN SODIUM - IV 10,000 UNITS/10 ML VIAL ONE ×2 (14:32→15:13)
[2017-04-05] MEDS ORDERED: NITROGLYCERIN INJ 5 ML ONE (14:53)
[2017-04-05] MEDS ORDERED: TIROFIBAN INFUSION INJ 250 ML IV ONE (15:00)
[2017-04-05] MEDS ORDERED: PRASUGREL 10 MG TAB ONE (15:12)
[2017-04-05] MEDS: TIROFIBAN INFUSION INJ 250 ML IV SCH (15:13)
[2017-04-05] MEDS ORDERED: MISC INFORMATION XX ONE (15:15)
[2017-04-05] MEDS ORDERED: SODIUM CHLORIDE 0.9% FLUSH 10 ML FLUSH PRN (15:15)
[2017-04-05] MEDS ORDERED: BACITRACIN OINT 0.9 GM PKT TOP ONE (15:15)
[2017-04-05] MEDS ORDERED: ASPIRIN 81 MG CHEW TAB ONE (15:37)
--- NOTE | 2017-04-05 15:42 | CATHPROC ---
Packet Design HIS Report Study Information Study Number Admission Scheduled Start Study Start [id number] Apr 03 2017 8:39AM 04/05/2017 Apr 05 2017 1:24PM [place] [facility] Cardiac Catheterization Admit Source Facility Department Emergency department [facility] - [employer] Physician and Clinical Staff Initial Cb Julio Crm Architect Cyril Cifuentes RN Crm ArchitectIngrid Lind,HATTIE Recorder Rosa Nguyễn,RT(R) Scrub Remington Dillard RCIS(BS) Procedures Performed Procedure Location (Site) Vessel Name Coronary Angiograms LCA Left Coronary Coronary Angiograms RCA Right Coronary LV Gram-hand inj. LV LV Ventricle PTCA LAD Mid Left Coronary Stent LAD Dist Left Coronary Stent LAD Mid Left Coronary Wire insertion Fem Art (right) Femoral Art Equipment Time Mechanic Recovery Description Size Mfg Part Number Used/Scraped [id number] 14:36 [employer] WIRE, ASAHI PROWATER 180CM 180CM Used *[id number] CATHETER, FR5 SWAN DAV 14:01 [employer] FR 5 [id number] *[id number] Used MONITOR TRANSDUCER, TRUWAVE [id number] 14:01 NAVAS SALAZAR * Used W/STOCKCOCK *[id number] 538-420 *1332801 538-422 *[id number] 538-421 *[id number] *[id number] WIRE, HYDROSTEER 150CM [id number] 14:18 [employer] 150CM Used ANGLED GLIDE *[id number] 14:01 [employer] PACK, CCL CUSTOM * Used *[id number] 14:01 [employer] PACER PEN, SKIN DUAL W/ RULER * Used *[id number] 14:37 [employer] BALLOON, 2.5 X 20MM EUPHORA 20MM Used *[id number] 14:47 [employer] STENT, 2.5 26 INTEGRITY 2.5 26 Used *6502306 [id number] 14:49 [employer] STENT, 2.75 22 INTEGRITY 2.75 22 Used *2642073 [id number] 14:54 [employer] STENT, 3.0 15 INTEGRITY 3.0 15 Used *[id number] 14:42 [employer] MEDICAL 30 AMARIS INDEFLATOR Used *[id number] 14:07 [employer] SHEATH, FR4.5 PRELUDE 11CM FR 4.5 Used 035ACT [id number]- 14:01 [employer] MEDICAL SHEATH, FR5.5 PRELUDE 11CM FR 5.5 Used 038ACT# [id number] 14:36 [employer] MEDICAL SHEATH, FR6.5 PRELUDE 11CM FR 6.5 038ACT Used *[id number] 14:01 [employer] MEDICAL WIRE, 3MMJ .035 180CM 180CM Used *[id number] 14:01 NAMIC MANIFOLD, 4 PORT * Used *[id number] 14:01 [employer] OMNIPAQUE, 350 MG, 150ML 150ML [id number] Used [id number] 14:01 [employer],WARM AIR CCL * Used *[id number] Scrap: Physician 15:16 [employer] STENT, 2.5 26 INTEGRITY 2.5 26 *[id number] choice [id number] Scrap: Physician 14:54 [employer] STENT, 3.0 9 INTEGRITY 3.0 9 *[id number] choice Equipment Model, Serial, Lot Number and Expiration Data Description Model Number Serial Number Lot Number Expiration Date STENT, 2.5 26 INTEGRITY [id number] 08-20-2017 STENT, 2.75 22 INTEGRITY [id number] 12-22-2017 STENT, 3.0 15 INTEGRITY [id number] 02-19-2018 History: Current Medications Medication Dosage/Unit Route Frequency Last Date/Time Taken LISINOPRIL Glucophage History: Allergies Allergy Reaction No Known Allergies History: Risk Factors Family History of Hypertension Dyslipidemia Previous DC Previous Heart Failure Premature CAD No No No No Yes Prior Valve Prior PCI Prior CABG Surgery No No No Cerebrovascular Peripheral Artery Chronic Lung On Dialysis Diabetes Diabetes Therapy Disease Disease Disease No No No No Yes Oral History: Symptoms/Diagnosis Selection Items SOB History: Stress Tests Stress or Imaging Studies Performed No History: Other Disease Selection Items CHF History: Other Current Smoker No Labs Hgb (g/dl) Hct (%) WBC (l/cumm) Platelets (thousands) 11.60-17.00 35.00-51.00 4.00-11.00 150.00-450.00 11.8 36.6 9.5 326 Glucose (mg/dl) BUN (mg/dl) Creatinine (mg/dl) BUN:Creatinine (1:x) 74.00-106.00 7.00-18.00 0.50-1.30 10.00-20.00 155 30 1.4 21.4 Na (meq/l) K (meq/l) Cl (meq/l) Ca (mg/dl) 136.00-145.00 3.50-5.10 98.00-107.00 8.50-10.10 143 4.4 111 8.8 PT (sec) INR (PTT:PT) 9.80-11.60 0.90-1.10 11.7 1.1 Troponin I (ng/ml) CPK (u/l) CPK-MB (ng/ML) 0.02-0.05 26.00-308.00 0.50-3.60 0.06 81 Not Drawn Medication Medication Total Dose (Bolus/Oral) Medication Total Dosage/Unit 1% XYLOCAINE 20 mL AGGRASTAT BOLUS 44.8 mL EFFIENT 60 mg HEPARIN 9300 units NTG (IC) 200 mcg VERSED 1 mg Medications (Bolus/Oral) Medication Time Given Dosage/Unit Administered By Reason VERSED 04/05/2017 2:04:39 PM 1 mg Ingrid Hudson 1 mg VERSED given in lab by Ingrid Hudson, HATTIE in Left Antecubital via Peripheral IV. Ordered by Cb Be. 1% XYLOCAINE 04/05/2017 2:05:12 PM 20 mL Cb Asif 20 mL 1% XYLOCAINE given in lab by Cb Asif in Right Groin via Subcutaneous. Ordered by Cb Whaley. HEPARIN 04/05/2017 2:34:12 PM 6300 units Ingrid Hudson 6300 units HEPARIN given in lab by Ingrid Hudson, RN in Right Antecubital via Peripheral IV. Ordere d by Cb Asif. HEPARIN 04/05/2017 2:50:36 PM 2000 units Ingrid Hudson 2000 units HEPARIN given in lab by Ingrid Hudson, HATTIE in Right Antecubital via Peripheral IV. Ordere d by Cb Asif. NTG (IC) 04/05/2017 2:56:20 PM 200 mcg Cb Asif 200 mcg NTG (IC) given in lab by Cb Asif via LCA Intra-coronary. Ordered by Cb Asif . EFFIENT 04/05/2017 3:03:40 PM 60 mg Ingrid Hudson 60 mg EFFIENT given in lab by Ingrid Hudson RN via Oral. Ordered by Cb Asif. AGGRASTAT BOLUS 04/05/2017 3:09:47 PM 44.8 mL Ingrid Hudson 44.8 mL AGGRASTAT BOLUS given in lab by Ingrid Hudson RN via Peripheral IV. Ordered by Poonam Asif rthur. HEPARIN 04/05/2017 3:11:15 PM 1000 units Ingrid Hudson 1000 units HEPARIN given in lab by Ingrid Hudson RN in Right Antecubital via Peripheral IV. Ordere d by Cb Asif. Medication (Drip) Medication Time Given Dosage/Unit Concentration/Unit Diluent (ml) Solution AGGRASTAT DRIP 04/05/2017 3:10:26 PM 0.15 mcg/kg/min 12.5 mg 250 NaCl .9 0.15 mcg/kg/min AGGRASTAT DRIP given in lab by Ingrid Hudson RN via Peripheral IV. Pump/Drip Flow = 16.11 ml/hr using NaCl .9 with a concentration of 12.5 mg in 250 ml. Ordered by Cb Asif. Initial Case Assessment Cardiovascular HR Rhythm NIBP Chest Pain 125 tachy 129/91 0 Edema Present Skin color Skin None Normal Warm Circulatory - Right Pulses Dorsalis Pedis Femoral 2 3 Scale (0,1,2,3,4,d) Circulatory - Left Pulses Dorsalis Pedis Femoral 2 3 Scale (0,1,2,3,4,d) Neurological State Oriented to time-place- Alert Moves all extremities person Respiration - General Respiration Rate SpO2 (%) (B/min) 19 98 Final Case Assessment Cardiovascular HR Rhythm NIBP Chest Pain 125 tachy 129/91 0 Edema Present Skin color Skin None Normal Warm Circulatory - Right Pulses Dorsalis Pedis Femoral 2 3 Scale (0,1,2,3,4,d) Circulatory - Left Pulses Dorsalis Pedis Femoral 2 3 Scale (0,1,2,3,4,d) Neurological State Oriented to time-place- Alert Moves all extremities person Respiration - General Respiration Rate SpO2 (%) (B/min) 19 98 Chronological Log Time Study Chronological Log 13:46:55 Patient arrived via Bed. 13:46:55 Patient Name, D.O.B, / Armband Verified By R.N. 13:46:56 Consent signed by the physician and the patient and verified by the [employer] staff. 13:46:56 Pre-op and post- op instructions given; patient acknowledges understanding of instructions. 13:46:59 Verbal Stimulation=2 Physical Stimulation=2 Airway=2 Respiration=2 TOTAL=8. (0=absent, 1=li mited, 2=present) 13:47:01 Presedation assessment performed by [employer] RN. 13:47:19 Immediate Presedation assesment performed by physician. 13:47:21 Patient has been NPO for More than 6Hrs. 13:47:22 Skin Breakdown- none per patient 13:47:22 Patient Warmer Placed on the Table. 13:47:24 Kraig Prominences Protected 13:47:27 A # 20 IV was noted in the Antecubital (left). Grade = 0 13:47:47 History and physical on the chart or being dictated. Assessment: Initial Case, VQ=236 BPM, Rhythm=tachy, YFVJ=616/91 mmhg, Chest Pain=0, Edema=None, Color=Normal, Skin = Warm Right Pulses: Karlos Ped=2, Femoral=3 13:47:49 Left Pulses: Karlos Ped=2, Femoral=3 Neurological: State=Alert, Ox3, MACKENZIE Respiration: Resp=19 B/min, SpO2=98 % 13:49:24 ZGMV=701/115 mmhg, SpO2=98.0 %, Pain=0, Homar=10, Crenshaw=2 13:51:53 Reference ECG taken 13:54:25 WA=705 bpm, BYSY=114/91 mmhg, SpO2=98.0 %, Resp=27 B/min, Pain=0, Homar=10, Crenshaw=2 13:56:59 Bilateral groins prepped with 2% chlorhexidine, and draped after a 3 min. waiting time. 13:59:24 EH=386 bpm, DJWE=454/96 mmhg, SpO2=98.0 %, Resp=35 B/min, Pain=0, Homar=10, Crenshaw=2 14:02:06 MD paged 14:04:15 MD arrived. 14:04:27 FV=325 bpm, KYNU=234/91 mmhg, SpO2=96.0 %, Resp=8 B/min, Pain=0, Homar=10, Crenshaw=2 14:04:29 Pressure channel 1 zeroed. 14:04:39 1 mg VERSED given in lab by Ingrid Hudson RN in Left Antecubital via Peripheral IV. Orde red by Cb Asif. Time Out. Correct patient, correct procedure,correct physician, power injector not loaded with contrast withsurgical 14:05:06 team present. Time Out Concurred by , individual staff in procedure 14:05:09 Case Start 20 mL 1% XYLOCAINE given in lab by Cb Asif in Right Groin via Subcutaneous. Ordered by Yefri, 14:05:12 Cb. 14:06:03 Access site was Right Femoral Artery. 14:06:15 A SHEATH, FR4.5 PRELUDE 11CM FR 4.5 was advanced into the Fem Art (right) using the Percuta neous technique. 14:07:34 Saturation: Site=FA (Femoral Artery) , O2=96.5 %, Hgb=11.8 gm/dl, Condition=Condition 1. ed in calculation. 14:08:09 Access site was Right Femoral Vein. 14:08:16 A SHEATH, FR5.5 PRELUDE 11CM FR 5.5 was advanced into the Fem Vein (right) using the Percut aneous technique. 14:09:32 A CATHETER, FR5 SWAN DAV MONITOR FR 5 was inserted via Fem Vein (right) 14:09:53 RC=952 bpm, JFIJ=023/83 mmhg, SpO2=97.0 %, Resp=23 B/min, Pain=0, Homar=10, Crenshaw=2 Recorded Pressure: PA, SU=926, Condition=Condition 1 14:11:22 (Pulmonary Artery) PA 63/13/34 14:11:37 Pressure channel 1 zeroed. 14:12:06 Saturation: Site=PA (Pulmonary Artery) , O2=63.3 %, Hgb=11.8 gm/dl, Condition=Condition 1. Used in calculation. 14:12:41 Saturation: Site=RA (Right Atrium) , O2=62.7 %, Hgb=11.8 gm/dl, Condition=Condition 1. Used in calculation. Recorded Pressure: RV, PG=614, Condition=Condition 1 14:12:46 (Right Ventricle) RV 64/7/13 Recorded Pressure: RA, IC=535, Condition=Condition 1 14:12:55 (Right Atrium) RA 1716 14:13:37 [place] Dav Catheter Removed A JR 4.0 INFINITI CATHETER FR 4 was advanced over a wire. OMNIPAQUE, 350 MG, 150ML 150ML was us ed for 14:13:56 injections. 14:14:29 UQ=473 bpm, HZVN=204/87 mmhg, SpO2=96.0 %, Resp=23 B/min, Pain=0, Homar=10, Crenshaw=2 14:15:40 Wire removed 14:16:14 An injection in the Groin (right) was made through the SHEATH, FR4.5 PRELUDE 11CM FR 4.5. 14:16:30 A WIRE, HYDROSTEER 150CM ANGLED GLIDE 150CM was inserted via Fem Art (right). 14:17:52 Wire removed Recorded Pressure: LV, DH=963, Condition=Condition 1 14:18:10 (Left Ventricle) LV 110/17/32 14:18:28 The LV was manually injected with 10 cc's and visualized. OMNIPAQUE, 350 MG, 150ML 150ML us ed. Recorded Pressure: LV, Ao, GU=551, Condition=Condition 1 14:18:39 (Left Ventricle) LV 110/19/31, (Aorta) Ao 104/69/86 14:19:28 WN=541 bpm, HXWS=392/73 mmhg, SpO2=97.0 %, Resp=27 B/min, Pain=0, Homar=10, Crenshaw=2 14:19:43 The RCA was injected and visualized at various angles. OMNIPAQUE, 350 MG, 150ML 150ML used . After removing the current catheter a JL 4.0 INFINITI CATHETER FR 4 was advanced over a WIRE, 3 MMJ .035 180CM 14:19:53 180CM. 14:20:42 Catheter was removed, unable to cannulate A JL 5.0 INFINITI CATHETER FR 4 was advanced over a wire. OMNIPAQUE, 350 MG, 150ML 150ML was us ed for 14:21:58 injections. 14:22:16 The LCA was injected and visualized at various angles. OMNIPAQUE, 350 MG, 150ML 150ML used . 14:24:25 CW=789 bpm, LKEJ=357/86 mmhg, SpO2=95.0 %, Resp=20 B/min, Pain=0, Homar=10, Crenshaw=2 14:26:17 Catheter was removed 14:29:29 VF=937 bpm, UURH=452/82 mmhg, SpO2=96.0 %, Resp=27 B/min, Pain=0, Homar=10, Crenshaw=2 6300 units HEPARIN given in lab by Ingrid Hudson, HATTIE in Right Antecubital via Peripheral IV. Ordered by Yefri, 14:34:12 Cb. 14:34:26 DK=112 bpm, FHAH=162/85 mmhg, SpO2=95.0 %, Resp=30 B/min, Pain=0, Homar=10, Crenshaw=2 A SHEATH, FR6.5 PRELUDE 11CM FR 6.5 was exchanged in the Fem Art (right). This was necessary in order to 14:35:50 accomodate a larger catheter. A XB 3.5 GUIDE CATHETER FR 6 was advanced over a wire. OMNIPAQUE, 350 MG, 150ML 150ML was used for 14:38:01 injections. 14:38:23 Wire removed 14:38:28 Activated Clotting Time Drawn 14:38:57 A WIRE, ASAHI PROWATER 180CM 180CM was inserted via Fem Art (right). 14:39:27 YD=668 bpm, WAIR=322/81 mmhg, SpO2=97.0 %, Resp=28 B/min, Pain=0, Homar=10, Crenshaw=2 A BALLOON, 2.5 X 20MM EUPHORA 20MM was inserted over WIRE, ASAHI PROWATER 180CM 180CM via the F em Art 14:41:07 (right). A BALLOON, 2.5 X 20MM EUPHORA 20MM over a WIRE, ASAHI PROWATER 180CM 180CM in the LAD Mid was i nflated 14:41:32 using a 30 AMARIS INDEFLATOR at 8 amaris for 20 sec. A BALLOON, 2.5 X 20MM EUPHORA 20MM over a WIRE, ASAHI PROWATER 180CM 180CM in the LAD Mid was i nflated 14:42:09 using a 30 AMARIS INDEFLATOR at 9 amaris for 15 sec. A BALLOON, 2.5 X 20MM EUPHORA 20MM over a WIRE, ASAHI PROWATER 180CM 180CM in the LAD Mid was i nflated 14:42:36 using a 30 AMARIS INDEFLATOR at 9 amaris for 10 sec. A BALLOON, 2.5 X 20MM EUPHORA 20MM over a WIRE, ASAHI PROWATER 180CM 180CM in the LAD Mid was i nflated 14:43:00 using a 30 AMARIS INDEFLATOR at 9 amaris for 10 sec. 14:44:18 Balloon Removed. 14:44:28 WS=139 bpm, RZYA=311/88 mmhg, SpO2=93.0 %, Resp=27 B/min, Pain=0, Homar=10, Crenshaw=2 An implantable Bare Metal Stent was inserted through a XB 3.5 GUIDE CATHETER FR 6 over a WIRE, ASAHI 14:45:43 PROWATER 180CM 180CM. A STENT, 2.5 26 INTEGRITY 2.5 26 was deployed using a 30 AMARIS INDEFLATOR at 10 atmospheres for 1 5 seconds in 14:46:20 the LAD Dist. 14:47:11 Delivery device removed 14:49:00 ACT (Normal Range 90-180) = 219 An STENT, 2.75 22 INTEGRITY 2.75 22 Bare Metal Stent was inserted through a XB 3.5 GUIDE CATHET ER FR 6 over a 14:49:04 WIRE, ASAHI PROWATER 180CM 180CM. 14:49:31 EV=810 bpm, ORQC=914/81 mmhg, SpO2=96.0 %, Resp=26 B/min, Pain=0, Homar=10, Crenshaw=2 A STENT, 2.75 22 INTEGRITY 2.75 22 was deployed using a 30 AMARIS INDEFLATOR at 10 atmospheres for 12 seconds in 14:49:55 the LAD Mid. 14:50:21 Delivery device removed 2000 units HEPARIN given in lab by Ingrid Hudson RN in Right Antecubital via Peripheral IV. Ordered by Yefri 14:50:36 Cb. An STENT, 3.0 9 INTEGRITY 3.0 9 Bare Metal Stent was inserted through a XB 3.5 GUIDE CATHETER F R 6 over a 14:52:57 WIRE, ASAHI PROWATER 180CM 180CM. 14:53:48 Stent not deployed. Stent removed and intact. 14:54:28 MS=133 bpm, IYDK=988/86 mmhg, SpO2=90.0 %, Resp=25 B/min, Pain=0, Homar=10, Crenshaw=2 An STENT, 3.0 15 INTEGRITY 3.0 15 Bare Metal Stent was inserted through a XB 3.5 GUIDE CATHETER FR 6 over a 14:54:36 WIRE, [employer]eb[employer] PROWATER 180CM 180CM. A STENT, 3.0 15 INTEGRITY 3.0 15 was deployed using a 30 AMARIS INDEFLATOR at 10 atmospheres for 1 5 seconds in 14:55:13 the LAD Mid. 14:56:06 Delivery device removed 14:56:20 200 mcg NTG (IC) given in lab by Cb Asif via LCA Intra-coronary. Ordered by Cb Mendoza. 14:58:06 Wire and guide removed 14:59:33 OJ=594 bpm, UMKJ=770/75 mmhg, SpO2=93.0 %, Resp=13 B/min, Pain=0, Homar=10, Crenshaw=2 15:00:21 Case End 15:00:29 Activated Clotting Time Drawn 15:01:59 ACT (Normal Range 90-180) = 233 15:03:40 60 mg EFFIENT given in lab by Ingrid Hudson, HATTIE via Oral. Ordered by Cb Asif. 15:04:26 CG=053 bpm, LNCW=174/86 mmhg, SpO2=91.0 %, Resp=27 B/min, Pain=0, Homar=10, Crenshaw=2 15:09:31 QO=162 bpm, FZTX=047/78 mmhg, SpO2=94.0 %, Resp=23 B/min, Pain=0, Homar=10, Crenshaw=2 15:09:47 44.8 mL AGGRASTAT BOLUS given in lab by Ingrid Hudson, HATTIE via Peripheral IV. Ordered by Cb Garay. 0.15 mcg/kg/min AGGRASTAT DRIP given in lab by Ingrid Hudson, HATTIE via Peripheral IV. Pump/Drip Flow = 16.11 15:10:26 ml/hr using NaCl .9 with a concentration of 12.5 mg in 250 ml. Ordered by Cb Asif. 15:11:[address] 1000 units HEPARIN given in lab by Ingrid Hudson, RN in Right Antecubital via Peripheral IV. Ordered by Yefri, 15:11:15 Cb. 15:11:26 Sterile dressing applied to site 15:11:27 No case complications noted. 15:11:28 Cine recording checked. 15:11:30 Bedside Report will be given. 15:11:34 Implantable Device card placed in patient's chart. Assessment: Final Case, QC=004 BPM, Rhythm=tachy, DRAC=208/91 mmhg, Chest Pain=0, Edema=None, Color=Normal, Skin = Warm Right Pulses: Karlos Ped=2, Femoral=3 15:11:48 Left Pulses: Karlos Ped=2, Femoral=3 Neurological: State=Alert, Ox3, MACKENZIE Respiration: Resp=19 B/min, SpO2=98 % 15:11:56 A Left and Right Heart Cath was performed. 15:14:30 RV=275 bpm, RUNZ=929/79 mmhg, SpO2=96.0 %, Resp=17 B/min, Pain=0, Homar=10, Crenshaw=2 15:17:27 Vitals capture stopped. 15:18:37 [facility] End Study - Contrast Media Used In Study Contrast Total Opened (mL) Total Used (mL) Total Wasted (mL) Omnipaque 155 155 0 End Study - Maximum Contrast Load Max Contrast Load (mL) 319.8 End Study - Radiation Exposure Fluoro Time (minutes) 12.5 End Study - Patient Disposition Complications Transferred To Interventional Outcome No Telemetry Bed successful
[2017-04-05] MEDS ORDERED: PRASUGREL 10 MG TAB PO ONE (17:00)
[2017-04-05] MEDS: FUROSEMIDE 20 MG TAB PO SCH (17:53)
[2017-04-05] MEDS ORDERED: ALPRAZolam 0.25 MG TAB PO PRN (20:00)
[2017-04-05] MEDS ORDERED: ATORVASTATIN 10 MG TAB PO SCH (21:00)
[2017-04-05] MEDS: SODIUM CHLORIDE 0.9% FLUSH 10 ML FLUSH SCH (21:00)
[2017-04-05] MEDS ORDERED: CARVEDILOL 3.125 MG TAB PO SCH (21:00)
[2017-04-05] MEDS: CARVEDILOL 3.125 MG TAB PO SCH (21:07)
[2017-04-05] MEDS: POTASSIUM CHLORIDE 10 MEQ CONTROLLED RELEASE TAB PO SCH (21:08)
[2017-04-05] MEDS: FAMOTIDINE 20 MG TAB PO SCH (21:08)
[2017-04-06] VITALS (27 sets, daily range): BP systolic 96–115; BP diastolic 69–76; PULSE 105–118; RESP 16–18; TEMP 97.6–98.2; O2SAT 99–100
[2017-04-06] MEDS: INSULIN ASPART SUPPLEMENTAL SCALE SQ SCH ×4 (06:35→21:00)
[2017-04-06 07:06] LABS: AUTOMATED NEUTROPHIL # 9.5 TH/MM3 (1.8-7.7); BASOPHIL # 0.1 TH/MM3 (0-0.2); BASOPHIL % 0.8 % (0.0-2.0); EOSINOPHIL # 0.1 TH/MM3 (0-0.4); EOSINOPHIL % 1.2 % (0.0-4.0); HEMATOCRIT 35.5 % (39.0-51.0); HEMO FLAGS DIFF FINAL; LYMPHOCYTE # 0.7 TH/MM3 (1.0-4.8); MEAN CELL VOLUME 83.3 FL (80.0-100.0); MEAN CORPUSCULAR HEMOGLOBIN 27.2 PG (27.0-34.0); MEAN CORPUSCULAR HGB CONC 32.6 % (32.0-36.0); MONO % 11.6 % (0.0-8.0); NEUT % 80.4 % (16.0-70.0); PLATELET COUNT 375 TH/MM3 (150-450); RED BLOOD COUNT 4.26 MIL/MM3 (4.50-5.90); RED CELL DISTRIBUTION WIDTH 14.8 % (11.6-17.2); WHITE BLOOD COUNT 11.8 TH/MM3 (4.0-11.0)
[2017-04-06] MEDS: TIROFIBAN INFUSION INJ 250 ML IV SCH (07:39)
[2017-04-06 07:41] LABS: POTASSIUM 4.4 MEQ/L (3.5-5.1)
[2017-04-06 07:46] LABS: HDL CHOLESTEROL 34.8 MG/DL (40.0-60.0)
[2017-04-06] MEDS: SODIUM CHLORIDE 0.9% FLUSH 10 ML FLUSH SCH ×2 (09:00→21:00)
[2017-04-06] MEDS ORDERED: RAMIPRIL 2.5 MG CAP PO SCH (09:00)
[2017-04-06] MEDS: SODIUM CHLORIDE 0.9% FLUSH 10 ML FLUSH IV FLUSH SCH ×2 (09:00→22:32)
[2017-04-06] MEDS ORDERED: LISINOPRIL 5 MG TAB PO SCH (09:00)
[2017-04-06] MEDS: PRASUGREL 10 MG TAB PO SCH (09:06)
[2017-04-06] MEDS: FUROSEMIDE 20 MG TAB PO SCH ×2 (09:07→17:02)
[2017-04-06] MEDS: ASPIRIN 81 MG CHEW TAB PO SCH (09:07)
[2017-04-06] MEDS: CARVEDILOL 3.125 MG TAB PO SCH (09:07)
[2017-04-06] MEDS: POTASSIUM CHLORIDE 10 MEQ CONTROLLED RELEASE TAB PO SCH ×2 (09:08→22:31)
--- NOTE | 2017-04-06 13:02 | PD.CARD.PN ---
Subjective Subjective Remarks dyspnea "significantly improved" Objective Vital Signs / I&O Vital Signs Date Time Temp Pulse Resp B/P (MAP) Pulse Ox O2 Delivery O2 Flow Rate FiO2 04/06/17 12:51 110 04/06/17 11:23 Room Air 97 04/06/17 11:15 97.9 105 16 96/69 (78) 04/06/17 11:15 106 04/06/17 10:07 107 04/06/17 09:22 112 04/06/17 08:52 111 04/06/17 07:30 97.8 109 16 115/75 (88) 04/06/17 07:30 Nasal Cannula 2.00 99 04/06/17 07:30 113 04/06/17 06:01 114 04/06/17 05:08 108 04/06/17 04:15 108 04/06/17 03:49 112 04/06/17 03:44 97.9 112 18 104/70 (81) 99 04/06/17 02:23 114 04/06/17 01:17 113 04/06/17 00:39 118 04/05/17 23:45 98.0 119 17 109/71 (84) 99 04/05/17 23:00 121 04/05/17 22:00 122 04/05/17 21:00 122 04/05/17 20:00 120 04/05/17 19:45 98.0 125 18 103/60 (74) 98 Arterial Line 04/05/17 19:25 126 04/05/17 17:00 119 04/05/17 16:00 98.3 123 20 130/81 (97) 99 143/84 (103) 04/05/17 15:37 98 Room Air I/O 04/05/17 04/05/17 04/05/17 04/06/17 04/06/17 04/06/17 06:59 14:59 22:59 06:59 14:59 22:59 Intake Total 5 ml 630 ml Output Total 1350 ml Balance 5 ml -720 ml Intake Oral 390 ml IV Total 5 ml 240 ml Output Urine Total 1350 ml # Bowel Movements 1 Laboratory Laboratory Tests Test 04/06/17 04:55 White Blood Count 11.8 TH/MM3 Red Blood Count 4.26 MIL/MM3 Hemoglobin 11.6 GM/DL Hematocrit 35.5 % Mean Corpuscular Volume 83.3 FL Mean Corpuscular Hemoglobin 27.2 PG Mean Corpuscular Hemoglobin Concent 32.6 % Red Cell Distribution Width 14.8 % Platelet Count 375 TH/MM3 Mean Platelet Volume 8.8 FL Neutrophils (%) (Auto) 80.4 % Lymphocytes (%) (Auto) 6.0 % Monocytes (%) (Auto) 11.6 % Eosinophils (%) (Auto) 1.2 % Basophils (%) (Auto) 0.8 % Neutrophils # (Auto) 9.5 TH/MM3 Lymphocytes # (Auto) 0.7 TH/MM3 Monocytes # (Auto) 1.4 TH/MM3 Eosinophils # (Auto) 0.1 TH/MM3 Basophils # (Auto) 0.1 TH/MM3 CBC Comment DIFF FINAL Differential Comment Blood Urea Nitrogen 28 MG/DL Creatinine 1.52 MG/DL Random Glucose 150 MG/DL Calcium Level 8.7 MG/DL Sodium Level 144 MEQ/L Potassium Level 4.4 MEQ/L Chloride Level 108 MEQ/L Carbon Dioxide Level 24.0 MEQ/L Anion Gap 12 MEQ/L Estimat Glomerular Filtration Rate 47 ML/MIN Total Creatine Kinase 51 U/L B-Type Natriuretic Peptide 1303 PG/ML Triglycerides Level 99 MG/DL Cholesterol Level 158 MG/DL LDL Cholesterol 103 MG/DL HDL Cholesterol 34.8 MG/DL Cholesterol/HDL Ratio 4.54 RATIO Imaging GENERAL: SKIN: Warm and dry. HEAD: Normocephalic. EYES: No scleral icterus. No injection or drainage. NECK: Supple, trachea midline. No JVD or lymphadenopathy. CARDIOVASCULAR: Regular rate and rhythm without murmurs, gallops, or rubs. RESPIRATORY: Breath sounds equal bilaterally. No accessory muscle use. GASTROINTESTINAL: Abdomen soft, non-tender, nondistended. MUSCULOSKELETAL: No cyanosis, or edema. BACK: Nontender without obvious deformity. No CVA tenderness. Assessment and Plan Problem List: (1) CHF (congestive heart failure) ICD Codes: I50.9 - Heart failure, unspecified (2) NSTEMI (non-ST elevated myocardial infarction) ICD Codes: I21.4 - Non-ST elevation (NSTEMI) myocardial infarction (3) Pulmonary edema ICD Codes: J81.1 - Chronic pulmonary edema Status: Acute (4) Elevated troponin ICD Codes: R74.8 - Abnormal levels of other serum enzymes Status: Acute Assessment and Plan 1.) NSTEMI/chf/CAD - dyspnea significantly improved pod #1 pci x3 bms of lad, increase altace to 5 mg qd, coreg 6.25 mg bid, lipitor 40 mg hs, continue dapt, f/u bnp/bmp in am. wean O2, ambulate with nursing assistance, d/w nurse Problem Qualifiers (1) Pulmonary edema: Qualified Codes: J81.0 - Acute pulmonary edema Cb Asif MD Apr 06, 2017 13:02
--- NOTE | 2017-04-06 14:00 | HHI.PR ---
Subjective Subjective Remarks Resting in the bed, denies any chest pain or shortness of breath Talkative, hopeful for discharge tomorrow Currently on room air Afebrile (Laura Mata) Review of Systems Constitutional Constitutional: Fatigue (improved), Weakness (improved) Constitutional Remarks 10 point ROS done positives noted (Laura Mata) Pulmonary Respiratory: Shortness of Breath (controlled, none noted at rest) (Laura Mata) Cardiology CV: Chest Pain (controlled) (Laura Mata) Musculoskeletal MS: Weakness (Laura Mata) Psychiatric Psychiatric: Normal Mood, Anxiety (mild) (Laura Mata) Vitals/Results Vital Signs Vital Signs Date Time Temp Pulse Resp B/P (MAP) Pulse Ox O2 Delivery O2 Flow Rate FiO2 04/06/17 13:25 110 04/06/17 12:51 110 04/06/17 11:23 Room Air 97 04/06/17 11:15 97.9 105 16 96/69 (78) 04/06/17 11:15 106 04/06/17 10:07 107 04/06/17 09:22 112 04/06/17 08:52 111 04/06/17 07:30 97.8 109 16 115/75 (88) 04/06/17 07:30 Nasal Cannula 2.00 99 04/06/17 07:30 113 04/06/17 06:01 114 04/06/17 05:08 108 04/06/17 04:15 108 04/06/17 03:49 112 04/06/17 03:44 97.9 112 18 104/70 (81) 99 04/06/17 02:23 114 04/06/17 01:17 113 04/06/17 00:39 118 04/05/17 23:45 98.0 119 17 109/71 (84) 99 04/05/17 23:00 121 04/05/17 22:00 122 04/05/17 21:00 122 04/05/17 20:00 120 04/05/17 19:45 98.0 125 18 103/60 (74) 98 Arterial Line 04/05/17 19:25 126 04/05/17 17:00 119 04/05/17 16:00 98.3 123 20 130/81 (97) 99 143/84 (103) 04/05/17 15:37 98 Room Air (Laura Mata) CBC/BMP: 04/06/17 0455 04/06/17 0455 Lab Results Laboratory Tests Test 04/06/17 04:55 White Blood Count 11.8 TH/MM3 Red Blood Count 4.26 MIL/MM3 Hemoglobin 11.6 GM/DL Hematocrit 35.5 % Mean Corpuscular Volume 83.3 FL Mean Corpuscular Hemoglobin 27.2 PG Mean Corpuscular Hemoglobin Concent 32.6 % Red Cell Distribution Width 14.8 % Platelet Count 375 TH/MM3 Mean Platelet Volume 8.8 FL Neutrophils (%) (Auto) 80.4 % Lymphocytes (%) (Auto) 6.0 % Monocytes (%) (Auto) 11.6 % Eosinophils (%) (Auto) 1.2 % Basophils (%) (Auto) 0.8 % Neutrophils # (Auto) 9.5 TH/MM3 Lymphocytes # (Auto) 0.7 TH/MM3 Monocytes # (Auto) 1.4 TH/MM3 Eosinophils # (Auto) 0.1 TH/MM3 Basophils # (Auto) 0.1 TH/MM3 CBC Comment DIFF FINAL Differential Comment Blood Urea Nitrogen 28 MG/DL Creatinine 1.52 MG/DL Random Glucose 150 MG/DL Calcium Level 8.7 MG/DL Sodium Level 144 MEQ/L Potassium Level 4.4 MEQ/L Chloride Level 108 MEQ/L Carbon Dioxide Level 24.0 MEQ/L Anion Gap 12 MEQ/L Estimat Glomerular Filtration Rate 47 ML/MIN Total Creatine Kinase 51 U/L B-Type Natriuretic Peptide 1303 PG/ML Triglycerides Level 99 MG/DL Cholesterol Level 158 MG/DL LDL Cholesterol 103 MG/DL HDL Cholesterol 34.8 MG/DL Cholesterol/HDL Ratio 4.54 RATIO Imaging Remarks Last Impressions Chest X-Ray 04/03/17 0642 Signed Impressions: Service Date/Time: Monday, April 03, 2017 06:53 - CONCLUSION: Normal examination. Chinmay Urrutia MD (Laura Mata) Physical Exam General General Appearance: No Acute Distress, Comfortable, Obese (Laura Mata) Eyes Eye Exam: Pupils Equal, Sclera White (AdolfoLaura M. CHEMISTRY TUTOR) Ears & Nose Ears & Nose Exam: Nasal Mucosa [place] (AdolfoMeganLaura M. CHEMISTRY TUTOR) Throat Throat Exam: Oral Mucosa [place] & Moist (AdolfoMeganLaura M. CHEMISTRY TUTOR) Neck Neck Exam: Neck Supple, Trachea Midline (FultonLaura M. CHEMISTRY TUTOR) Pulmonary Resp Exam: Clear Bilaterally, Breath Sounds Equal, No Distress, Decreased Bases , Diminished Breath Sounds (FultonMeganLaura M. CHEMISTRY TUTOR) Cardiology CV Exam: Regular, Normal Sinus Rhythm (AdolfoMeganLaura M. CHEMISTRY TUTOR) Gastrointestinal/Abdomen GI Exam: Soft, Non-Tender, Bowel Sounds Present (AdolfoLaura M. CHEMISTRY TUTOR) Musculoskeletal MS Exam: Joints Intact, Normal Tone (AdolfoMeganLaura M. CHEMISTRY TUTOR) Integumentary Skin Exam: Warm, Dry (AdolfoMeganLaura M. CHEMISTRY TUTOR) Extremeties Extremities Exam: No Edema, Pedal Pulses Palpable (AdolfoMeganLaura M. CHEMISTRY TUTOR) Neurologic Neuro Exam: Alert, Awake, Oriented, Speech Clear, Moving All Extremities (FultonLaura M. CHEMISTRY TUTOR) Psychiatric Psych Exam: Appropriate Responses (Adolfo,Laura M. CHEMISTRY TUTOR) VTE Prophylaxis VTE Prophylaxis Meds: Lovenox (FultonLaura M. CHEMISTRY TUTOR) PUD Prophylasis PUD Prophylaxis: Zantac (AdolfoLaura M. CHEMISTRY TUTOR) Assessment/Plan Assessment/Plan Vital signs reviewed, afebrile, patient has borderline tachycardia, being monitored on telemetry, medically managed per cardiology Labs reviewed, leukocytosis 11.8, acute kidney injury with chronic renal disease probably at his baseline, hyperlipidemia ASSESMENT New Onset/ Acute CHF exacerbation Patient understands and educated on Fluid restriction, intake and output, now on by mouth Lasix, O2 only when necessary now Appreciate cardiac input and plan a care, status post heart Received multiple stents to the LAD, further stance pending for the future, 2-D echo EF low, follow-up with cardiology as outpatient for further procedure/stents. Altered taste increased to 5 mg daily, currently Coreg 6.25 mg twice a day, Lipitor at at bedtime If stable possible home tomorrow per cardiology. Medical management, DM Accu-Cheks before meals and at bedtime with ADA diet and plan for control CKD stage III Monitor labs, may need renal involvement, anemia probably secondary to this chronic disease, no acute blood loss note Discharge planning probable tomorrow if medically stable. Patient denies any shortness of breath or chest pain at rest. Still having some diuresis from by mouth Lasix Pepcid PUD prophylaxis Lovenox for DVT prophylaxis Discussed with patient Discussed with nurse Discussed with Dr. Díaz, seen on his behalf (Laura Mata) Assessment/Plan pt is seen & Examined d/w PT Dr Longo's input appreciated s/p cath w PCI LAD , official report [p]. reportedly multi vessel ds, Dr longo is recommending staged Intervention adjust tx monitor BP/HR & renal function possible d/c home in am , if remained stable am labs will f/u (Ngozi Díaz MD) Laura Mata Apr 06, 2017 14:00 Ngozi Díaz MD Apr 06, 2017 17:08
--- NOTE | 2017-04-06 15:22 | EKG ---
Date Performed: 04/05/2017 Time Performed: 15:42:50 PTAGE: 61 years EKG: --- Warning: Data quality may affect interpretation --- Sinus tachycardia. Rightward axis R ight ventricular hypertrophy Lateral ST elevation, CONSIDER ACUTE INFARCT Low QRS voltages in precord ial leads Right bundle branch block Nonspecific anterior ST elevation that was noted on the prior tra cing Clinical correlation remains important Abnormal ECG PREVIOUS TRACING : 04/03/2017 06.52 Since the prior tracing, there has been some variation in t he anterior T-wave changes, but no other significant serial change. DOCTOR: Mariangel Warner Interpretating Date/Time 04/06/2017 15:21:25
--- NOTE | 2017-04-06 15:29 | EKG ---
Date Performed: 04/06/2017 Time Performed: 05:19:52 PTAGE: 61 years EKG: Sinus tachycardia Rightward axis Right ventricular hypertrophy Nonspecific anterior ST elev ation previously noted Clinical correlation remains important Abnormal ECG PREVIOUS TRACING : 04/05/2017 15.42 Since the prior tracing, there has been a slight slowing of the sinus tachycardia, but no other significant serial change. DOCTOR: Mariangel Warner Interpretating Date/Time 04/06/2017 15:27:20
--- NOTE | 2017-04-06 17:13 | MR ---
cc: RIO GERMAN M.D. DATE: 04/06/2017 PROCEDURE: 1. Right heart catheterization. 2. Left heart catheterization. 3. Left ventriculography. 4. Coronary angiography. INDICATIONS 5. Decompensated congestive heart failure. 6. Coronary artery disease 7. Diabetes mellitus. 8. [place] Heart Association class IV congestive heart failure. 9. New onset severe dyspnea at rest, orthopnea and lower extremity edema. 10. Anginal equivalent [place] [employer] Class IV angina. 11. Pulmonary hypertension. The patient brought to the heart catheterization. Prepped and draped in the usual sterile fashion 10 cc's of 1% lidocaine was used to locally anesthetize the right common artery, a 4-Burmese sheath was subsequently placed in the right femoral artery. A 5-Burmese sheath placed in the right common femoral vein. The right heart catheterization was performed first with following findings I was not able to wedge the balloon into the PA position, I did get a distal RV outflow tract it was 63% the pressure in the LV outflow tract was 63/13/34, Right ventricle pressure 64/7/13. He has RA pressure of 18, saturation was 63% the femoral artery sat was 96% on room air and cardiac output by Scarlett is 4.8 liters per minute. Cardiac index by Scarlett is 2.3 liters per minute per meter square. The Left heart catheterization. Note I had to steer the 025 J-tip guidewire through the right external iliac artery due to vessel tortuosity thereafter all catheter exchanges were done over a long 035 guidewire, I used a 4-Burmese JR-4, JL-5 diagnostic catheter with following findings of left ventricle pressures 110/20/33. Ejection fraction 35-40%. The anteroapical wall is probably at least moderately hypokinetic the right coronary artery is a large and dominant vessel, it has mild diffuse disease in the prox-mid segment up to 30% angiographically, the distal segment has a 75% stenosis. The right PDA has a mid to distal 80% stenosis. The right DAVID has a focal 20% ostial stenosis. The PDA and DAVID are probably 3 mm vessels in their proximal to mid segments. The left main coronary artery has no significant disease angiographically. The left circumflex vessel is subtotally occluded in the mid segment, it then goes on to supply the remainder of the AV groove left circumflex vessel which a small 1.5 mm vessel tapering to a 0.5 mm vessel in the [id number] segment. It gives rise to a very small posterolateral artery which is probably 0.5 mm in diameter. The left anterior descending is a transapical vessel, it has a proximal 95% focal stenosis followed by a long 95% mid stenosis and then other long 95% mid to distal stenosis. The distal vessels probably a 1-mm vessel in diameter at most of it is transapical. The first diagonal artery is occluded proximally then fills by dccd-ce-abjj collaterals in the distal segment, in that segment it is a small vessel 0.5 mm in diameter. There is a ramus intermedius vessel which is a small to medium-sized vessel which has a bifurcation of the prox-mid segment of the vessel just proximal to the bifurcation there is an 80-90% stenosis. The branches of the bifurcation are by about 30 degrees, they both have ostial disease of up to 80%. DISCUSSION I discussed the case with Dr. Ruiz Espinosa as the patient has poor targets and decompensated congestive heart failure with severely elevated left ventricular end-diastolic pressures. Risk benefit ratio most favored attempted PCI of the LAD to help improve his congestive heart failure prior to consideration of bypass. Therefore the 6-Burmese sheath was exchanged for 4 Burmese sheath 7 units per kilo of heparin was given, initial ACT was 210 and additional 2000 units of heparin was given. Final ACT pending at time of dictation. A 6-Burmese XB 3.5 guide 0.014 [place] guidewire were placed into the distal LAD. The distal lesion was predilated with a 2520 before balloon, three inflations of 80 atmospheres up to 20 seconds. The mid lesion was then predilated with 2524 balloon, two inflations of up to 8 atmospheres up to 20 seconds. We then placed a 2526 integrity stent in the distal segment, one placed 10 atmospheres for 15 seconds stenosis went from 95% to 0% PETE -III flow. We then placed a 275 22 integrity stent in the mid segment, one inflation 10 atmospheres for 15 seconds, stenosis went from 95% to 0% with PETE -III. I then placed a 3-0 15 stent in the proximal segment. Initially when I looked at this lesion it did not appear to be high grade, i.e. above 75%. However, in further inspection of the images it did appear to be a focal MAP [place] type stenosis and when the stent was un-deployed across the lesion. There was nearly complete obstruction of contrast around the unemployed stent. The stent was deployed one inflation of 10 atmospheres for 15 seconds. Stenosis went from 95% to 0% with PETE -III flow. CONCLUSION 1. Decompensated congestive heart failure with severe three-vessel coronary disease in right dominant system as detailed above. 2. Markedly elevated LV pressures (115/20 - 35) 3. At least moderate pulmonary hypertension. 4. Successful PCI with a bare metal stent x3 of the LAD as detailed above. 5. Recommend Effient 60 mg p.o. load then 10 mg daily for 12 to 15 months, aspirin 162 daily, Aggrastat drip. 6. Note there were no overlaps of the three stents placed in the left anterior descending. Lesions were all Spot stented. 7. Moderate to severe left ventricular systolic function of 35-40% with more disproportionate hypokinesis of the anteroapical wall as detailed above. 8. Recommend optimal medical therapy. Congestive heart failure with beta-blockers and ALISA inhibitor once the patient is euvolemic continue diuresis follow up BNP BMP, magnesium. Further revascularization pending the patient's hemodynamic symptomatic and clinical response to studying the left anterior descending. MD ROSALEE Jiménez/robert /3:03 PM /4:36 PM
[2017-04-06] MEDS ORDERED: ATORVASTATIN 40 MG TAB PO SCH (21:00)
[2017-04-06] MEDS: CARVEDILOL 6.25 MG TAB PO SCH (22:31)
[2017-04-06] MEDS: FAMOTIDINE 20 MG TAB PO SCH (22:31)
[2017-04-07] VITALS (17 sets, daily range): BP systolic 87–108; BP diastolic 64–76; PULSE 99–106; RESP 17–18; TEMP 97.9; O2SAT 98–99
[2017-04-07] MEDS: INSULIN ASPART SUPPLEMENTAL SCALE SQ SCH ×2 (06:22→11:00)
[2017-04-07 07:02] LABS: BICARBONATE 27.6 MEQ/L (21.0-32.0); POTASSIUM 4.4 MEQ/L (3.5-5.1)
[2017-04-07] MEDS ORDERED: RAMIPRIL 5 MG CAP PO SCH (09:00)
[2017-04-07] MEDS: SODIUM CHLORIDE 0.9% FLUSH 10 ML FLUSH IV FLUSH SCH (09:00)
[2017-04-07] MEDS: POTASSIUM CHLORIDE 10 MEQ CONTROLLED RELEASE TAB PO SCH (09:06)
[2017-04-07] MEDS: PRASUGREL 10 MG TAB PO SCH (09:07)
[2017-04-07] MEDS: FUROSEMIDE 20 MG TAB PO SCH (09:07)
[2017-04-07] MEDS: CARVEDILOL 6.25 MG TAB PO SCH (09:07)
[2017-04-07] MEDS: ASPIRIN 81 MG CHEW TAB PO SCH (09:08)
[2017-04-07] MEDS: SODIUM CHLORIDE 0.9% FLUSH 10 ML FLUSH SCH (09:09)
[2017-04-07] MEDS ORDERED: DIGOXIN 0.125 MG TAB PO ONE (11:45)
--- NOTE | 2017-04-07 11:57 | HHI.PR ---
Subjective History of Present Illness Feels well breathing is better able to ambulate better able to lie down & sleep better although BP is running low , asymptomatic Denies chest pain No fever or chills Occasional cough No nausea or vomiting Good appetite Offers no other complaints Review of Systems Constitutional Constitutional: Fatigue (improved), Weakness (improved) Pulmonary Respiratory: Shortness of Breath (controlled, none noted at rest) Cardiology CV: Chest Pain (controlled) Musculoskeletal MS: Weakness Psychiatric Psychiatric: Normal Mood, Anxiety (mild) Vitals/Results Vital Signs Vital Signs Date Time Temp Pulse Resp B/P (MAP) Pulse Ox O2 Delivery O2 Flow Rate FiO2 04/07/17 11:51 101 04/07/17 11:49 97.9 101 18 87/64 (72) 99 04/07/17 11:49 99 Room Air 04/07/17 10:23 104 04/07/17 09:56 105 04/07/17 08:12 101 04/07/17 07:31 98 Room Air 04/07/17 07:31 103 04/07/17 07:31 97.9 103 17 108/76 (87) 98 04/07/17 06:14 100 04/07/17 05:03 102 04/07/17 04:14 103 04/07/17 03:56 104 04/07/17 03:40 98 Room Air 04/07/17 03:40 97.9 106 17 98/76 (83) 98 04/07/17 02:15 99 04/07/17 01:36 104 04/07/17 00:44 100 04/06/17 23:33 98.2 116 18 105/76 (86) 100 04/06/17 23:33 99 Room Air 04/06/17 23:00 105 04/06/17 22:00 112 04/06/17 21:00 112 04/06/17 20:00 112 04/06/17 19:50 98.2 113 17 107/76 (86) 99 04/06/17 19:50 99 Room Air 04/06/17 19:00 114 04/06/17 18:04 114 04/06/17 17:00 111 04/06/17 16:14 110 04/06/17 15:30 97 Room Air 04/06/17 15:30 111 04/06/17 15:30 97.6 111 16 102/69 (80) 04/06/17 14:04 110 04/06/17 13:25 110 04/06/17 12:51 110 CBC/BMP: 04/06/17 0455 04/07/17 0601 Lab Results Laboratory Tests Test 04/07/17 06:01 Blood Urea Nitrogen 29 MG/DL Creatinine 1.51 MG/DL Random Glucose 144 MG/DL Calcium Level 8.8 MG/DL Sodium Level 142 MEQ/L Potassium Level 4.4 MEQ/L Chloride Level 108 MEQ/L Carbon Dioxide Level 27.6 MEQ/L Anion Gap 6 MEQ/L Estimat Glomerular Filtration Rate 47 ML/MIN B-Type Natriuretic Peptide 1135 PG/ML Physical Exam General General Appearance: No Acute Distress, Comfortable, Obese Eyes Eye Exam: Pupils Equal, Sclera White Ears & Nose Ears & Nose Exam: Nasal Mucosa [place] Throat Throat Exam: Oral Mucosa [place] & Moist Neck Neck Exam: Neck Supple, Trachea Midline Pulmonary Resp Exam: Clear Bilaterally, Breath Sounds Equal, No Distress, Decreased Bases , Diminished Breath Sounds Cardiology CV Exam: Regular, Normal Sinus Rhythm Gastrointestinal/Abdomen GI Exam: Soft, Non-Tender, Bowel Sounds Present Musculoskeletal MS Exam: Joints Intact, Normal Tone Integumentary Skin Exam: Warm, Dry Extremeties Extremities Exam: No Edema, Pedal Pulses Palpable Neurologic Neuro Exam: Alert, Awake, Oriented, Speech Clear, Moving All Extremities Psychiatric Psych Exam: Appropriate Responses VTE Prophylaxis VTE Prophylaxis Meds: Lovenox PUD Prophylasis PUD Prophylaxis: Zantac Assessment/Plan Assessment/Plan ASSESMENT New Onset/ Acute CHF exacerbation, systolic dysfunction. HTN DM CKD stage III Pulmonary hypertension, severe, d/t left sided heart failure PLAN O2 Fluid restriction 1400cc/day strict Is & Os po diuretic 2 DEcho decreased LVF , EF 30 to 35 % Mild Conc LVH mildly dilated Left atrium severe pulmonary HTN /70mmhg s/p left heart catheterization multi vessel CAD , s/p 3 BMS of LAD , will need additional re vascularization in stages per cardiology d/t CKD Not felt to be a good surgical candidate dt elevated pulmonary/LVED pressures BB ALISA-I , will consider lowering dose if BP remained low or become symptomatic add digoxin for rate control f./u renal function stable cont ASA/Effient Pepcid for GI protection Subcutaneous Lovenox for DVT prophylaxis d/w DR Asif , he rec to keep him on current cardiac meds /dose & agreed to add Dig cleared for dc by card Rec exercise caution upon getting up from sitting & supine position. also rec to avoid driving car till BP stablized d/c home today see MRS see orders f/u pcp f/u Ngozi Joseph MD Apr 07, 2017 11:57
[2017-04-07] MEDS ORDERED: FURO20TA PO (12:13)
[2017-04-07] MEDS ORDERED: ATOR40TA16 PO (12:13)
[2017-04-07] MEDS ORDERED: CARV6.25 PO (12:13)
[2017-04-07] MEDS ORDERED: RAMI5CAP PO (12:13)
[2017-04-07] MEDS ORDERED: DIGO0.12 PO (12:13)
[2017-04-07] MEDS ORDERED: POTA-243 PO (12:13)
[2017-04-07] MEDS ORDERED: ASPI81CH25 PO (12:13)
[2017-04-07] MEDS ORDERED: PRAS10TA PO (12:13)
--- NOTE | 2017-04-07 12:40 | PD.CARD.PN ---
Subjective Subjective Remarks assymptomatic Objective Vital Signs / I&O Vital Signs Date Time Temp Pulse Resp B/P (MAP) Pulse Ox O2 Delivery O2 Flow Rate FiO2 04/07/17 12:19 101 04/07/17 11:51 101 04/07/17 11:49 97.9 101 18 87/64 (72) 99 04/07/17 11:49 99 Room Air 04/07/17 10:23 104 04/07/17 09:56 105 04/07/17 08:12 101 04/07/17 07:31 98 Room Air 04/07/17 07:31 103 04/07/17 07:31 97.9 103 17 108/76 (87) 98 04/07/17 06:14 100 04/07/17 05:03 102 04/07/17 04:14 103 04/07/17 03:56 104 04/07/17 03:40 98 Room Air 04/07/17 03:40 97.9 106 17 98/76 (83) 98 04/07/17 02:15 99 04/07/17 01:36 104 04/07/17 00:44 100 04/06/17 23:33 98.2 116 18 105/76 (86) 100 04/06/17 23:33 99 Room Air 04/06/17 23:00 105 04/06/17 22:00 112 04/06/17 21:00 112 04/06/17 20:00 112 04/06/17 19:50 98.2 113 17 107/76 (86) 99 04/06/17 19:50 99 Room Air 04/06/17 19:00 114 04/06/17 18:04 114 04/06/17 17:00 111 04/06/17 16:14 110 04/06/17 15:30 97 Room Air 04/06/17 15:30 111 04/06/17 15:30 97.6 111 16 102/69 (80) 04/06/17 14:04 110 04/06/17 13:25 110 04/06/17 12:51 110 I/O 04/06/17 04/06/17 04/06/17 04/07/17 04/07/17 04/07/17 07:00 15:00 23:00 07:00 15:00 23:00 Intake Total 630 ml 600 ml 480 ml Output Total 1350 ml 476 ml 400 ml Balance -720 ml 124 ml 80 ml Intake Oral 390 ml 600 ml 480 ml IV Total 240 ml Output Urine Total 1350 ml 475 ml 400 ml Stool Total 1 ml # Bowel Movements 1 Laboratory GENERAL: SKIN: Warm and dry. HEAD: Normocephalic. EYES: No scleral icterus. No injection or drainage. NECK: Supple, trachea midline. No JVD or lymphadenopathy. CARDIOVASCULAR: Regular rate and rhythm without murmurs, gallops, or rubs. RESPIRATORY: Breath sounds equal bilaterally. No accessory muscle use. GASTROINTESTINAL: Abdomen soft, non-tender, nondistended. MUSCULOSKELETAL: No cyanosis, or edema. BACK: Nontender without obvious deformity. No CVA tenderness. Laboratory Tests Test 04/07/17 06:01 Blood Urea Nitrogen 29 MG/DL Creatinine 1.51 MG/DL Random Glucose 144 MG/DL Calcium Level 8.8 MG/DL Sodium Level 142 MEQ/L Potassium Level 4.4 MEQ/L Chloride Level 108 MEQ/L Carbon Dioxide Level 27.6 MEQ/L Anion Gap 6 MEQ/L Estimat Glomerular Filtration Rate 47 ML/MIN B-Type Natriuretic Peptide 1135 PG/ML Assessment and Plan Problem List: (1) CHF (congestive heart failure) ICD Codes: I50.9 - Heart failure, unspecified (2) NSTEMI (non-ST elevated myocardial infarction) ICD Codes: I21.4 - Non-ST elevation (NSTEMI) myocardial infarction (3) Pulmonary edema ICD Codes: J81.1 - Chronic pulmonary edema Status: Acute (4) Elevated troponin ICD Codes: R74.8 - Abnormal levels of other serum enzymes Status: Acute Assessment and Plan 1.) NSTEMI/chf/CAD - assymptomatic pod #2 pci x3 bms of lad, continue altace to 5 mg qd, coreg 6.25 mg bid, lipitor 40 mg hs, continue dapt, add dig, ok to dc from cv standpoint, f/u with me 04/13/17; d/w Dr Hitchcock Problem Qualifiers (1) Pulmonary edema: Qualified Codes: J81.0 - Acute pulmonary edema Cb Asif MD Apr 07, 2017 12:40
--- NOTE | 2017-04-07 15:30 | HHI.DS ---
Discharge Summary Admission Date Apr 03, 2017 at 08:39 Discharge Date: Apr 07, 2017 Admitting Diagnosis CHF Brief History This was a very pleasant 61 year old male with prior history of diabetes, hypertension and possible diabetic nephropathy. The patient was in his usual state of health until about two weeks ago when he started noticing shortness of breath, usually upon exertion. The patient reported that he was active in his job and said he had to walk many miles in a day. However, lately he started noticing that every time he started to walk, he got short of breath which is gradually getting worse. He had to stand and rest for a short period of time before he could walk further. This was gradually getting worse. He reports orthopnea, had been sleeping propped up using four pillows at night time. He also reported he had had some paroxysmal nocturnal dyspnea. Lately, he had a difficult time sleeping at night due to shortness of breath. He denied chest pain but has some episodes of tightness in the chest when he breathed heavy. CBC/BMP: 04/06/17 0455 04/07/17 0601 Significant Findings Laboratory Tests Test 04/05/17 05:45 04/06/17 04:55 04/07/17 06:01 Red Blood Count 4.38 MIL/MM3 (4.50-5.90) 4.26 MIL/MM3 (4.50-5.90) Hemoglobin 11.8 GM/DL (13.0-17.0) 11.6 GM/DL (13.0-17.0) Hematocrit 36.6 % (39.0-51.0) 35.5 % (39.0-51.0) Blood Urea Nitrogen 30 MG/DL (7-18) 28 MG/DL (7-18) 29 MG/DL (7-18) Creatinine 1.44 MG/DL (0.60-1.30) 1.52 MG/DL (0.60-1.30) 1.51 MG/DL (0.60-1.30) Random Glucose 155 MG/DL (74-106) 150 MG/DL (74-106) 144 MG/DL (74-106) Estimat Glomerular Filtration Rate 50 ML/MIN (>89) 47 ML/MIN (>89) 47 ML/MIN (>89) B-Type Natriuretic Peptide 1184 PG/ML (0-100) 1303 PG/ML (0-100) 1135 PG/ML (0-100) White Blood Count 11.8 TH/MM3 (4.0-11.0) Neutrophils (%) (Auto) 80.4 % (16.0-70.0) Lymphocytes (%) (Auto) 6.0 % (9.0-44.0) Monocytes (%) (Auto) 11.6 % (0.0-8.0) Neutrophils # (Auto) 9.5 TH/MM3 (1.8-7.7) Lymphocytes # (Auto) 0.7 TH/MM3 (1.0-4.8) Monocytes # (Auto) 1.4 TH/MM3 (0-0.9) Chloride Level 108 MEQ/L (98-107) 108 MEQ/L (98-107) LDL Cholesterol 103 MG/DL (0-99) HDL Cholesterol 34.8 MG/DL (40.0-60.0) Imaging Last Impressions Chest X-Ray 04/03/17 0642 Signed Impressions: Service Date/Time: Monday, April 03, 2017 06:53 - CONCLUSION: Normal examination. Chinmay Urrutia MD PE at Discharge General Appearance: No Acute Distress, Comfortable, Obese Eyes Eye Exam: Pupils Equal, Sclera White Ears & Nose Ears & Nose Exam: Nasal Mucosa [place] Throat Throat Exam: Oral Mucosa [place] & Moist Neck Neck Exam: Neck Supple, Trachea Midline Pulmonary Resp Exam: Clear Bilaterally, Breath Sounds Equal, No Distress, Decreased Bases , Diminished Breath Sounds Cardiology CV Exam: Regular, Normal Sinus Rhythm Gastrointestinal/Abdomen GI Exam: Soft, Non-Tender, Bowel Sounds Present Musculoskeletal MS Exam: Joints Intact, Normal Tone Integumentary Skin Exam: Warm, Dry Extremeties Extremities Exam: No Edema, Pedal Pulses Palpable Neurologic Neuro Exam: Alert, Awake, Oriented, Speech Clear, Moving All Extremities Psychiatric Psych Exam: Appropriate Responses VTE Prophylaxis VTE Prophylaxis Meds: Lovenox PUD Prophylasis PUD Prophylaxis: Zantac Hospital Course Patient's initial diagnosis were used to treat him during this brief hospital stay in plan of care New Onset/ Acute CHF exacerbation, systolic dysfunction. 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 Labs were reviewed and monitored daily and or as warranted, leukocytosis acute kidney injury and chronic renal disease were monitored throughout stay, patient had troponins monitored initially on admission, and had cardiac catheterization during this hospital stay afebrile, patient has borderline tachycardia, being monitored on telemetry, medically managed per cardiology Patient was initially found to have New Onset/ Acute CHF exacerbation IV Lasix was given, and once patient was diuresed, was transitioned to by mouth Lasix Patient had cardiac catheterization done and was found to have multivessel disease, patient had multiple stents placed in his LAD, and will have to return on an outpatient basis as long as stable and have further stents placed in another dominant artery. [place] that he was not a good candidate for bypass surgery Patient understands and educated on Fluid restriction, intake and output, oxygen therapy, monitoring of his diet and activity 2-D echo was done Altace increased to 5 mg daily, currently Coreg 6.25 mg twice a day, Lipitor at at bedtime If stable possible home tomorrow per cardiology. Medical management was continued and monitored DM Accu-Cheks before meals and at bedtime with ADA diet and plan for control CKD stage III Monitor labs, may need renal involvement, anemia probably secondary to this chronic disease, no acute blood loss note Pepcid PUD prophylaxis Lovenox for DVT prophylaxis On discharge, instructions included Fluid restriction 1400cc/day strict Is & Os po diuretic On discharge , DR Asif , recommended to keep him on current cardiac meds / dose & agreed to add Dig Patient was medically stable on discharge Pt Condition on Discharge: Stable Discharge Disposition: Discharge Home Discharge Instructions DIET: Follow Instructions for: Heart Healthy Diet, Diabetic Diet Fluid Restrictions: 1400cc/day Activities you can perform: Full Weight Bearing Other Activity Instructions: avoid driving till BP stablized Follow up Referrals: Cardiology - 2 Weeks PCP Follow-up - 1 Week New Medications: Aspirin (Aspirin Low Strength) 81 Mg Chew 162 MG PO DAILY for cad for 30 Days, #60 EA Atorvastatin (Atorvastatin) 40 Mg Tab 40 MG PO HS for cad for 30 Days, #30 TAB Carvedilol (Coreg) 6.25 Mg Tab 6.25 MG PO Q12HR for cad for 30 Days, #60 TAB Digoxin (Digoxin) 0.125 Mg Tab 0.125 MG PO DAILY for CHF for 30 Days, #30 TAB Furosemide (Furosemide) 20 Mg Tab 20 MG PO BID@09,18 for chf for 30 Days, #60 TAB Potassium Chloride ER (Klor-Con 10) 10 Meq Tab 10 MEQ PO BID for lasix for 30 Days, #60 TAB Prasugrel (Effient) 10 Mg Tab 10 MG PO DAILY for stent for 30 Days, #30 TAB 0 Refills Ramipril (Ramipril) 5 Mg Cap 5 MG PO DAILY for chf for 30 Days, #30 CAP Continued Medications: Sitagliptin-Metformin (Janumet) 50-1,000 Mg Tab 1 TAB PO BID for Blood Sugar Management, #60 TAB 0 Refills Discontinued Medications: Lisinopril (Lisinopril) 10 Mg Tab 10 MG PO DAILY, #30 TAB 0 Refills Laura Mata Apr 07, 2017 15:30
[2017-04-08] MEDS ORDERED: RAMIPRIL 2.5 MG CAP PO SCH (09:00)
[2017-04-08] MEDS ORDERED: DIGOXIN 0.125 MG TAB PO SCH (09:00)
== END 2017-04-07 15:30 | disposition home or self-care (01) | DRG 248 ==
LOC: NEPE 05:26 → NEDA 08:39 → N04B 12:48 → HCIS 04-05 14:57 → HCIN 04-05 16:35
PROVIDERS: ADMIT Specialist; ATTEND Specialist
PROC: 4A023N8 Measurement of Cardiac Sampling and Pressure, Bilateral, Percutaneous Approach (ICD-10-PCS; 2017-04-05)
PROC: B2111ZZ Fluoroscopy of Multiple Coronary Arteries using Low Osmolar Contrast (ICD-10-PCS; 2017-04-05)
PROC: B2151ZZ Fluoroscopy of Left Heart using Low Osmolar Contrast (ICD-10-PCS; 2017-04-05)
PROC: 02703FZ Dilation of Coronary Artery, One Artery with Three Intraluminal Devices, Percutaneous Approach (ICD-10-PCS; principal; 2017-04-05 13:30)
DX: I13.0 Hypertensive heart and chronic kidney disease with heart failure and stage 1 through stage 4 chronic kidney disease, or unspecified chronic kidney disease (principal); I50.21 Acute systolic (congestive) heart failure; I21.4 Non-ST elevation (NSTEMI) myocardial infarction; E11.21 Type 2 diabetes mellitus with diabetic nephropathy; N17.9 Acute kidney failure, unspecified; N18.3 Chronic kidney disease, stage 3 (moderate); E11.65 Type 2 diabetes mellitus with hyperglycemia; E11.22 Type 2 diabetes mellitus with diabetic chronic kidney disease; I45.10 Unspecified right bundle-branch block; I25.118 Atherosclerotic heart disease of native coronary artery with other forms of angina pectoris; I27.2 Other secondary pulmonary hypertension; D63.1 Anemia in chronic kidney disease
CPT/HCPCS: 71010; 80048; 80053; 80061; 82550; 82948; 83735; 83880; 84484; 85002; 85025; 85027; 85610; 85730; 92928; 93005; 93306; 93460; 96374; C1725; C1769; C1876; C1887; C1893; J1644; J1815; J1940; J2250; J3246; Q9967

== ENCOUNTER 2017-12-29 19:39 | Inpatient (IN) | payer OTHER ==
[~2017-12-29] VITALS: Ht 175.3 cm; Wt 75.0 kg
[~2017-12-29 19:39] MED LIST changes: -ALBU6.7H INH; +ASPI81CH25 PO; +ATOR40TA16 PO; +CARV6.25 PO; +DIGO0.12 PO; +FURO20TA PO; +JANU50TA8 PO; +KLOR10TA PO; +PRAS10TA PO; -PROM6.257 PO; +RAMI5CAP PO; -SULF-154 PO; -Z.0.NO CURRENT MEDS
[2017-12-29 20:02] VITALS: BP 112/56; PULSE 117; RESP 16; TEMP 100.2; O2SAT 100
[2017-12-29 21:16] VITALS: BP 105/68; PULSE 104; RESP 20; O2SAT 98
--- NOTE | 2017-12-29 21:19 | PD ---
HPI Chief Complaint: Cardiac Complaint Time Seen by Provider: 21:05 Travel History International Travel<30 days: No Contact w/Intl Traveler<30days: No Traveled to known affect area: No History of Present Illness HPI 62yo M with PMH of CHF, CAD presents to the ED with c/o generalized weakness, worsening sob and chest tightness for a few days. Said chest tightness is midsternal, nonradiating and constant. Feels sob just with sitting. Pt has low grade fever at home. Denies any n/v, abdominal pain, focal weakness or numbness. Pt had NSTEMI in 03/2017 and had PCI x3. Pt follows with preformer [employer]ated [employer] Dr. Asif. [facility] Past Medical History Cancer: No Cardiovascular Problems: Yes Congestive Heart Failure: Yes Diabetes: Yes Diminished Hearing: No Endocrine: Yes Genitourinary: No Immune Disorder: No Musculoskeletal: No Neurologic: No Psychiatric: No Reproductive: No Respiratory: No Thyroid Disease: No Social History Alcohol Use: Yes (PT STATES "OCCASIONAL") Tobacco Use: No Substance Use: No Allergies-Medications (Allergen,Severity, Reaction): Coded Allergies: No Known Allergies (Verified Adverse Reaction, Unknown, 12/29/17) Reported Meds & Prescriptions Reported Meds & Active Scripts Active Furosemide 20 Mg Tab 20 Mg PO BID@18 30 Days Klor-Con 10 (Potassium Chloride) 10 Meq Tab 10 Meq PO BID 30 Days Aspirin Low Strength (Aspirin) 81 Mg Chew 162 Mg PO DAILY 30 Days Ramipril 5 Mg Cap 5 Mg PO DAILY 30 Days Coreg (Carvedilol) 6.25 Mg Tab 6.25 Mg PO Q12HR 30 Days Atorvastatin (Atorvastatin Calcium) 40 Mg Tab 40 Mg PO HS 30 Days Digoxin 0.125 Mg Tab 0.125 Mg PO DAILY 30 Days Effient (Prasugrel) 10 Mg Tab 10 Mg PO DAILY 30 Days Reported Janumet (Sitagliptin-Metformin) 50-1,000 Mg Tab 1 Tab PO BID Review of Systems Except as stated in HPI: all other systems reviewed are Neg Physical Exam Narrative GENERAL: 62yo M in mild distress. SKIN: Focused skin assessment warm/dry. HEAD: Atraumatic. Normocephalic. EYES: Pupils equal and round. No scleral icterus. No injection or drainage. ENT: No nasal bleeding or discharge. Mucous membranes pink and moist. NECK: Trachea midline. No JVD. CARDIOVASCULAR: Regular rate and rhythm. No murmur appreciated. RESPIRATORY: No accessory muscle use. Clear to auscultation. Breath sounds equal bilaterally. GASTROINTESTINAL: Abdomen soft, non-tender, nondistended. MUSCULOSKELETAL: No obvious deformities. No clubbing. No cyanosis. Trace bilateral lower extremity edema. NEUROLOGICAL: Awake and alert. No obvious cranial nerve deficits. Motor grossly within normal limits. Normal speech. PSYCHIATRIC: Appropriate mood and affect; insight and judgment normal. Data Data Last Documented VS Vital Signs Date Time Temp Pulse Resp B/P (MAP) Pulse Ox O2 Delivery O2 Flow Rate FiO2 12/29/17 22:38 99.4 105 22 106/55 (72) 98 Room Air Orders Orders Complete Blood Count With Diff (12/29/17 21:13) Basic Metabolic Panel (Bmp) (12/29/17 21:13) B-Type Natriuretic Peptide (12/29/17 21:13) Act Partial Throm Time (Ptt) (12/29/17 21:13) Prothrombin Time / Inr (Pt) (12/29/17 21:13) Magnesium (Mg) (12/29/17 21:13) Troponin I (12/29/17 21:13) Urinalysis - C+S If Indicated (12/29/17 21:13) Influenzae A/B Antigen (12/29/17 21:13) Blood Culture (12/29/17 21:13) Chest, Single Ap (12/29/17 21:13) Lactic Acid Sepsis Protocol (12/29/17 21:13) Digoxin (12/29/17 21:13) Electrocardiogram (12/29/17 ) Ceftriaxone Inj (Rocephin Inj) (12/29/17 22:45) Azithromycin (Zithromax) (12/29/17 22:45) Labs Laboratory Tests Test 12/29/17 21:25 White Blood Count 19.4 TH/MM3 Red Blood Count 4.02 MIL/MM3 Hemoglobin 10.4 GM/DL Hematocrit 33.2 % Mean Corpuscular Volume 82.6 FL Mean Corpuscular Hemoglobin 26.0 PG Mean Corpuscular Hemoglobin Concent 31.4 % Red Cell Distribution Width 16.5 % Platelet Count 192 TH/MM3 Mean Platelet Volume 8.4 FL Neutrophils (%) (Auto) 87.1 % Lymphocytes (%) (Auto) 1.7 % Monocytes (%) (Auto) 10.8 % Eosinophils (%) (Auto) 0.2 % Basophils (%) (Auto) 0.2 % Neutrophils # (Auto) 16.9 TH/MM3 Lymphocytes # (Auto) 0.3 TH/MM3 Monocytes # (Auto) 2.1 TH/MM3 Eosinophils # (Auto) 0.0 TH/MM3 Basophils # (Auto) 0.0 TH/MM3 CBC Comment DIFF FINAL Differential Comment Prothrombin Time 12.0 SEC Prothromb Time International Ratio 1.2 RATIO Activated Partial Thromboplast Time 27.3 SEC Blood Urea Nitrogen 30 MG/DL Creatinine 1.80 MG/DL Random Glucose 178 MG/DL Calcium Level 8.5 MG/DL Magnesium Level 2.0 MG/DL Sodium Level 142 MEQ/L Potassium Level 4.6 MEQ/L Chloride Level 108 MEQ/L Carbon Dioxide Level 25.4 MEQ/L Anion Gap 9 MEQ/L Estimat Glomerular Filtration Rate 38 ML/MIN Lactic Acid Level 1.3 mmol/L Troponin I 0.03 NG/ML B-Type Natriuretic Peptide 1436 PG/ML Digoxin Level 1.0 NG/ML MDM Medical Decision Making Medical Screen Exam Complete: Yes Emergency Medical Condition: Yes Interpretation(s) EKG: Sinus tachycardia at 109bpm. RBBB. Right axis deviation. ST depression V3-V6 is new compare to EKG from 04/06/17. Differential Diagnosis ACS vs. Pneumonia vs. CHF Narrative Course 62yo M with sob, low grade fever and generalized weakness. Labs reviewed, leukocytosis at 19.4. Lactic acid normal at 1.3. BNP elevated at 1436. BUN/ creatinine elevated at 30/1.80 mildly elevated from baseline. Troponin negative at 0.03. Digoxin level normal at 1.0. Influenza negative. CXR showed bilateral consolidative infiltrates, left greater than right. Pt has not been hospitalized in last 3 months so covered with ceftriaxone and azithromycin. Discussed with Dr. Nelson and accepted to his service. Critical Care Narrative Aggregate critical care time was 40 minutes. Time to perform other separately billable procedures was not included in the critical care time. My time did not include minutes spent treating any other patients simultaneously or on activities that did not directly contribute to the patient's treatment. The services I provided to this patient were to treat and/or prevent clinically significant deterioration that could result in: cardiovascular collapse or . I provided critical care services requiring my management, as noted below: Chart data review, documentation time, medication orders and management, vital sign assessments/reviewing monitor data, ordering and reviewing lab tests, ordering and interpreting/reviewing x-rays and diagnostic studies, care of the patient and discussion of the patient with the admitting physicians. Sepsis Criteria SIRS Criteria (2 or more): Heart rate over 90, WBC > 25322, < 4000 or > 10% bands Sepsis Criteria (SIRS+source): Infect source susp/known Diagnosis Primary Impression: Pneumonia Qualified Codes: J18.1 - Lobar pneumonia, unspecified organism Admitting Information Admitting Physician Requests: Admit Chantel Castillo DO December 29, 2017 21:19
[2017-12-29 21:47] LABS: AUTOMATED NEUTROPHIL # 16.9 TH/MM3 (1.8-7.7); BASOPHIL % 0.2 % (0.0-2.0); EOSINOPHIL % 0.2 % (0.0-4.0); HEMATOCRIT 33.2 % (39.0-51.0); HEMOGLOBIN 10.4 GM/DL (13.0-17.0); LYMPH % 1.7 % (9.0-44.0); LYMPHOCYTE # 0.3 TH/MM3 (1.0-4.8); MEAN CELL VOLUME 82.6 FL (80.0-100.0); MEAN CORPUSCULAR HGB CONC 31.4 % (32.0-36.0); MEAN PLATELET VOLUME 8.4 FL (7.0-11.0); MONO % 10.8 % (0.0-8.0); MONOCYTE # 2.1 TH/MM3 (0-0.9); NEUT % 87.1 % (16.0-70.0); PLATELET COUNT 192 TH/MM3 (150-450); RED BLOOD COUNT 4.02 MIL/MM3 (4.50-5.90); RED CELL DISTRIBUTION WIDTH 16.5 % (11.6-17.2); WHITE BLOOD COUNT 19.4 TH/MM3 (4.0-11.0)
[2017-12-29 21:57] LABS: INTERNATIONAL NORMALIZED RATIO 1.2 RATIO
--- NOTE | 2017-12-29 22:17 | RADRPT ---
EXAM DATE: 12/29/2017 10:15 PM EDT AGE/SEX: 62 years / Male INDICATIONS: Shortness of breath, chest tightness and weakness. CLINICAL DATA: This is the patient's initial encounter. Patient reports that signs and symptoms have been present for 1 day and indicates a pain score of 3/10. MEDICAL/SURGICAL HISTORY: Congestive heart failure. Hypercholesterolemia. Hypertension. Suzanne nary artery disease. Diabetes. . 3 stents. COMPARISON: [facility] [place], CHEST SINGLE AP, 04/03/2017. . FINDINGS: There is consolidation in the left lower lung with loss of delineation of the entire left hemidiaphra gm. There are also patchy infiltrates at the right base causing loss of delineation of portions of th e right hemidiaphragm. The upper lungs are clear. The heart is upper limits normal size. CONCLUSION: Bilateral consolidative infiltrates, left greater than right. Electronically signed by: Neeraj Sidhu MD 12/29/2017 10:16 PM EDT
[2017-12-29 22:23] LABS: BICARBONATE 25.4 MEQ/L (21.0-32.0); CALCIUM 8.5 MG/DL (8.5-10.1); CREATININE 1.8 MG/DL (0.60-1.30)
[2017-12-29 22:38] VITALS: BP 106/55; PULSE 105; RESP 22; TEMP 99.4; O2SAT 98
[2017-12-29 22:39] LABS: TROPONIN I 0.03 NG/ML (0.02-0.05)
[2017-12-29] MEDS ORDERED: cefTRIAXone INJ 1,000 MG in SODIUM CHLORIDE 0.9% INJ 100 ML IV ONE (22:45)
[2017-12-29] MEDS ORDERED: AZITHROMYCIN 250 MG TAB PO ONE (22:45)
[2017-12-29] MEDS ORDERED: LACTULOSE SYRUP 20 GM/30 ML CUP PO PRN (23:15)
[2017-12-29] MEDS ORDERED: ACETAMINOPHEN 325 MG TAB PO PRN (23:15)
[2017-12-29] MEDS ORDERED: BISACODYL 10 MG SUPP RECTAL PRN (23:15)
[2017-12-29] MEDS ORDERED: SENNOSIDES 8.6 MG TAB PO PRN (23:15)
[2017-12-29] MEDS ORDERED: ONDANSETRON ODT 4 MG TAB PO PRN (23:15)
[2017-12-29] MEDS ORDERED: SODIUM CHLORIDE 0.9% FLUSH 10 ML FLUSH IV FLUSH PRN (23:15)
[2017-12-29] MEDS ORDERED: ENOXAPARIN SODIUM 40 MG/0.4 ML SYRINGE SQ SCH (23:15)
[2017-12-29] MEDS ORDERED: NALOXONE HCL 0.4 MG/ML AMP IV PUSH PRN (23:15)
[2017-12-29] MEDS ORDERED: MAGNESIUM HYDROXIDE SUSP 30 ML CUP PO PRN (23:15)
[2017-12-30] VITALS (9 sets, daily range): BP systolic 79–103; BP diastolic 48–58; PULSE 80–108; RESP 16–21; TEMP 97.7–98.8; O2SAT 97–99
--- NOTE | 2017-12-30 02:07 | HHI.HP ---
HPI Service [facility] Primary Care Physician Zeeshan Cooper, DO Admission Diagnosis Bilateral pneumonia Diagnoses: Chief Complaint: Shortness of breath, chest discomfort. Travel History International Travel<30 Days: No Contact w/Intl Traveler <30 Da: No Traveled to Known Affected Are: No History of Present Illness Mr. Miles is a pleasant 62-year-old male with a history of CAD, CHF who presents to the emergency department on 12/29/2017 due to generalized weakness, should worsening shortness of breath and chest tightness that started few days ago. His chest discomfort is tightness in quality, midsternal and nonradiating. He denies any cough, fever but reports chills. Patient underwent cardiac cath with PCI 3 in March 2017 after he had NSTEMI. At the time of this interview, patient is on room air. Denies any chest pain, shortness of breath. No changes in bowel or bladder habits. On arrival temperature 100.2F pulse 117 respirations 16 blood pressure 112/56 pulse oximetry 100% on room air. WBC 19.4 with neutrophil count 87.1%, BUN 30 creatinine 1.8, BNP 1436. Chest x-ray reveals bilateral consolidative infiltrates left greater than right. Review of Systems Except as stated in HPI: all other systems reviewed are Neg Past Family Social History Past Medical History CAD, CHF, DM, CKD Past Surgical History No major surgeries. Reported Medications Furosemide 20 Mg Tab 20 Mg PO BID@,18 30 Days Klor-Con 10 (Potassium Chloride) 10 Meq Tab 10 Meq PO BID 30 Days Aspirin Low Strength (Aspirin) 81 Mg Chew 162 Mg PO DAILY 30 Days Ramipril 5 Mg Cap 5 Mg PO DAILY 30 Days Coreg (Carvedilol) 6.25 Mg Tab 6.25 Mg PO Q12HR 30 Days Atorvastatin (Atorvastatin Calcium) 40 Mg Tab 40 Mg PO HS 30 Days Digoxin 0.125 Mg Tab 0.125 Mg PO DAILY 30 Days Effient (Prasugrel) 10 Mg Tab 10 Mg PO DAILY 30 Days Reported Janumet (Sitagliptin-Metformin) 50-1,000 Mg Tab 1 Tab PO BID Allergies: Coded Allergies: No Known Allergies (Verified Allergy, Unknown, 12/29/17) Family History Mom - diabetes. Social History Alcohol Use: Yes (PT STATES "OCCASIONAL") Tobacco Use: No Substance Use: No Physical Exam Vital Signs Vital Signs Date Time Temp Pulse Resp B/P (MAP) Pulse Ox O2 Delivery O2 Flow Rate FiO2 12/30/17 01:15 98.8 102 21 103/56 (72) 99 Room Air 12/29/17 22:38 99.4 105 22 106/55 (72) 98 Room Air 12/29/17 21:16 104 20 105/68 (80) 98 Room Air 12/29/17 21:16 103 20 98 Room Air 12/29/17 20:02 100.2 117 16 112/56 (74) 100 Physical Exam GENERAL: This is a well-nourished, well-developed patient, in no apparent distress. SKIN: No rashes, ecchymoses or lesions. Warm and dry. HEAD: Atraumatic. Normocephalic. No temporal or scalp tenderness. EYES: Pupils equal round and reactive. No injection or drainage. ENT: Nose without bleeding, purulent drainage or septal hematoma. Airway patent. NECK: Trachea midline. No lymphadenopathy. Supple, nontender, no meningeal signs. CARDIOVASCULAR: Regular rate and rhythm without murmurs, gallops, or rubs. No JVD. RESPIRATORY: Poor air entry. No wheezes, rales, or rhonchi. No appreciable crackles. GASTROINTESTINAL: Abdomen soft, non-tender, nondistended. No guarding. MUSCULOSKELETAL: Extremities without clubbing, cyanosis, or edema. NEUROLOGICAL: Awake and alert. Cranial nerves II through XII intact. No focal neurological deficits. Normal speech. Laboratory Laboratory Tests Test 12/29/17 21:25 White Blood Count 19.4 Red Blood Count 4.02 Hemoglobin 10.4 Hematocrit 33.2 Mean Corpuscular Volume 82.6 Mean Corpuscular Hemoglobin 26.0 Mean Corpuscular Hemoglobin Concent 31.4 Red Cell Distribution Width 16.5 Platelet Count 192 Mean Platelet Volume 8.4 Neutrophils (%) (Auto) 87.1 Lymphocytes (%) (Auto) 1.7 Monocytes (%) (Auto) 10.8 Eosinophils (%) (Auto) 0.2 Basophils (%) (Auto) 0.2 Neutrophils # (Auto) 16.9 Lymphocytes # (Auto) 0.3 Monocytes # (Auto) 2.1 Eosinophils # (Auto) 0.0 Basophils # (Auto) 0.0 CBC Comment DIFF FINAL Differential Comment Prothrombin Time 12.0 Prothromb Time International Ratio 1.2 Activated Partial Thromboplast Time 27.3 Blood Urea Nitrogen 30 Creatinine 1.80 Random Glucose 178 Calcium Level 8.5 Magnesium Level 2.0 Sodium Level 142 Potassium Level 4.6 Chloride Level 108 Carbon Dioxide Level 25.4 Anion Gap 9 Estimat Glomerular Filtration Rate 38 Lactic Acid Level 1.3 Troponin I 0.03 B-Type Natriuretic Peptide 1436 Digoxin Level 1.0 Date/Time Source Procedure Growth Status 12/29/17 21:30 Blood Peripheral Aerobic Blood Culture Pending Received 12/29/17 21:30 Blood Peripheral Anaerobic Blood Culture Pending Received 12/29/17 21:05 Nasal Aspirate Influenza Types A,B Antigen (RABIA) - Final NEGATIVE FOR FLU A AND B ANTIGEN.... Complete Result Diagram: 12/29/17212412/29/172124 Imaging Last Impressions Chest X-Ray 12/29/172112 Signed Impressions: CONCLUSION: Bilateral consolidative infiltrates, left greater than right. Caprini VTE Risk Assessment Caprini VTE Risk Assessment: Mod/High Risk (score >= 2) Caprini Risk Assessment Model Point Value = 1 Point Value = 2 Point Value = 3 Point Value = 5 Age 41-60 Minor surgery BMI > 25 kg/m2 Swollen legs Varicose veins or History of unexplained or recurrent spontaneous Oral contraceptives or hormone replacement Sepsis (< 1 month) Serious lung disease, including pneumonia (< 1 month) Abnormal pulmonary function Acute myocardial infarction Congestive heart failure (< 1 month) History of inflammatory bowel disease Medical patient at bed rest Age 61-74 Arthroscopic surgery Major open surgery (> 45 min) Laparoscopic surgery (> 45 min) Malignancy Confined to bed (> 72 hours) Immobilizing plaster cast Central venous access Age >= 75 History of VTE Family history of VTE Factor V Leiden Prothrombin [id number] Lupus anticoagulant Anticardiolipin antibodies Elevated serum homocysteine Heparin-induced thrombocytopenia Other congenital or acquired thrombophilia Stroke (< 1 month) Elective arthroplasty Hip, pelvis, or leg fracture Acute spinal cord injury (< 1 month) Prophylaxis Regimen Total Risk Factor Score Risk Level Prophylaxis Regimen 0-1 Low Early ambulation 2 Moderate Order ONE of the following: *Sequential Compression Device (SCD) *Heparin 5000 units SQ BID 3-4 Higher Order ONE of the following medications: *Heparin 5000 units SQ TID *Enoxaparin/Lovenox 40 mg SQ daily (WT < 150 kg, CrCl > 30 mL/min) *Enoxaparin/Lovenox 30 mg SQ daily (WT < 150 kg, CrCl > 10-29 mL/min) *Enoxaparin/Lovenox 30 mg SQ BID (WT < 150 kg, CrCl > 30 mL/min) AND/OR *Sequential Compression Device (SCD) 5 or more Highest Order ONE of the following medications: *Heparin 5000 units SQ TID (Preferred with Epidurals) *Enoxaparin/Lovenox 40 mg SQ daily (WT < 150 kg, CrCl > 30 mL/min) *Enoxaparin/Lovenox 30 mg SQ daily (WT < 150 kg, CrCl > 10-29 mL/min) *Enoxaparin/Lovenox 30 mg SQ BID (WT < 150 kg, CrCl > 30 mL/min) AND *Sequential Compression Device (SCD) Assessment and Plan Problem List: (1) Pneumonia ICD Code: J18.9 - Pneumonia, unspecified organism Status: Acute (2) CHF (congestive heart failure) ICD Code: I50.9 - Heart failure, unspecified Assessment and Plan Mr. Miles is a pleasant 62-year-old male with a history of CHF, CAD status post PCI 3 who presents to the emergency department due to chest discomfort which is midsternal and nonradiating. Upon arrival he was found to have leukocytosis, low-grade temperature and radiological evidence of bilateral pneumonia. BNP is elevated to 1436. Bilateral pneumonia -We will start patient on ceftriaxone 2 g and azithromycin. -If patient remains afebrile, consider switching antibiotics to Levaquin renally dosed for 7 days. -DuoNeb PRN Ischemic cardiomyopathy Congestive heart failure with reduced ejection fraction Coronary artery disease status post PCI stent in March 2017 -March 2017 echo shows EF 30-35%. -We will start patient on torsemide 10 mg twice daily. He takes Lasix 20 mg once a day at home. -Continue aspirin 162 milligrams daily, Prasugrel 10 mg daily. -Continue atorvastatin 40 mg nightly, digoxin 0.125 mg daily. -Continue ramipril 5 mg daily. -Repeat Limited Echo to obtain recent EF since reperfusion therapy was done in March. 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 Full code. Venu. Physician Certification 2 Midnight Certification Type: Admission for Inpatient Services Order for Inpatient Services The services are ordered in accordance with Medicare regulations or non- Medicare payer requirements, as applicable. In the case of services not specified as inpatient-only, they are appropriately provided as inpatient services in accordance with the 2-midnight benchmark. Estimated LOS (days): 2 days is the estimated time the patient will need to remain in the hospital, assuming treatment plan goals are met and no additional complications. Post-Hospital Plan: Not yet determined Problem Qualifiers (1) Pneumonia: Qualified Codes: J18.1 - Lobar pneumonia, unspecified organism Ananda Nelson DO December 30, 2017 02:07
[2017-12-30] MEDS ORDERED: DEXTROSE 50% IN WATER 50 ML VIAL(D50) IV PUSH PRN (02:30)
[2017-12-30] MEDS ORDERED: GLUCAGON 1 MG/ML VIAL OTHER PRN (02:30)
[2017-12-30] MEDS ORDERED: RESP: ALBUTEROL 2.5 MG/IPRATROPIUM 0.5 MG NEB (PRN) NEB (03:30)
[2017-12-30] MEDS: INSULIN ASPART SUPPLEMENTAL SCALE SQ SCH ×4 (08:00→21:02)
[2017-12-30] MEDS ORDERED: RAMIPRIL 5 MG CAP PO SCH (09:00)
[2017-12-30] MEDS: SODIUM CHLORIDE 0.9% FLUSH 10 ML FLUSH IV FLUSH SCH ×2 (09:00→20:59)
[2017-12-30] MEDS ORDERED: TORSEMIDE 5 MG TAB PO SCH (09:00)
[2017-12-30] MEDS: POTASSIUM CHLORIDE 10 MEQ CONTROLLED RELEASE TAB PO SCH ×2 (09:56→21:00)
[2017-12-30] MEDS: CARVEDILOL 6.25 MG TAB PO SCH ×2 (09:56→21:00)
[2017-12-30] MEDS: AZITHROMYCIN 250 MG TAB PO SCH (09:56)
[2017-12-30] MEDS: ASPIRIN 81 MG CHEW TAB PO SCH (09:57)
[2017-12-30] MEDS: PRASUGREL 10 MG TAB PO SCH (09:57)
[2017-12-30] MEDS: DIGOXIN 0.125 MG TAB PO SCH (09:57)
[2017-12-30] MEDS: cefTRIAXone INJ 2,000 MG in SODIUM CHLORIDE 0.9% INJ 100 ML IV SCH (10:45)
--- NOTE | 2017-12-30 15:21 | HHI.PR ---
Addendum to Inpatient Note Addendum Reason: Additional Documentation Additional Information Patient seen today. unlabored respiratory effort. Wanting to go home. Is very faint basilar crackles bilaterally. Will keep for another day given unsatisfactory renal function improvement. Will switch from torsemide twice daily back to home daily Lasix. White count improving, continue antibiotics. Anticipate discharge tomorrow. Kalpesh Ray MD December 30, 2017 15:21
--- NOTE | 2017-12-30 16:00 | HHI.DCPOC ---
Discharge Care Plan Diagnosis: (1) Pneumonia Goals to Promote Your Health * To prevent worsening of your condition and complications * To maintain your health at the optimal level Directions to Meet Your Goals Take your medications as prescribed Follow your dietary instruction Follow activity as directed Keep your appointments as scheduled Take your immunizations and boosters as scheduled If your symptoms worsen call your PCP, if no PCP go to Urgent Care Center or Emergency Room Smoking is Dangerous to Your Health. Avoid second hand smoke Call the 24-hour hour crisis hotline for domestic abuse at Kalpesh Ray MD December 30, 2017 16:00
[2017-12-30 16:02] LABS: HEMATOCRIT 28.8 % (39.0-51.0); HEMOGLOBIN 9.1 GM/DL (13.0-17.0); MEAN CELL VOLUME 82.9 FL (80.0-100.0); MEAN CORPUSCULAR HEMOGLOBIN 26.1 PG (27.0-34.0); MEAN CORPUSCULAR HGB CONC 31.5 % (32.0-36.0); MEAN PLATELET VOLUME 8.5 FL (7.0-11.0); PLATELET COUNT 174 TH/MM3 (150-450); RED BLOOD COUNT 3.47 MIL/MM3 (4.50-5.90); RED CELL DISTRIBUTION WIDTH 16.4 % (11.6-17.2)
[2017-12-30 16:27] LABS: CALCIUM 8.1 MG/DL (8.5-10.1); CREATININE 1.86 MG/DL (0.60-1.30)
[2017-12-30] MEDS ORDERED: ATORVASTATIN 40 MG TAB PO SCH (21:00)
[2017-12-30 21:10] LABS: BACTERIA, URINE RARE /hpf; BILIRUBIN, URINE NEG (NEG); BLOOD, URINE TRACE (NEG); GLUCOSE,URINE NEG (NEG); HYALINE CAST, URINE 5 /lpf (RARE); KETONE, URINE NEG (NEG); MUCUS URINE FEW /lpf (OCC); NITRITE,URINE NEG (NEG); PH, URINE 5.5 (5.0-8.5); SQUAMOUS EPITHELIAL CELL URINE 1 /hpf (0-5); URINE COLOR YELLOW (YELLW/STRAW); URINE LEUKOCYTE ESTERASE LARGE (NEG); WHITE BLOOD CELL CLUMPS MOD
[2017-12-31 00:15] VITALS: BP 98/56; PULSE 75; RESP 16; TEMP 98.6; O2SAT 99
[2017-12-31] MEDS ORDERED: ENOXAPARIN SODIUM 30 MG/0.3 ML SYRINGE SQ SCH (01:00)
[2017-12-31 05:45] VITALS: BP 101/61; PULSE 103; RESP 17; TEMP 97.3; O2SAT 99
--- NOTE | 2017-12-31 07:21 | EKG ---
Date Performed: 12/30/2017 Time Performed: 11:04:14 PTAGE: 62 years EKG: Possible SINUS TACHYCARDIA MARKED RIGHT AXIS DEVIATION RIGHT BUNDLE BRANCH BLOCK SEPTAL CHANDRAKANT CARDIAL INFARCTION ACUTE PA PREVIOUS TRACING : 12/30/2017 04.12 DOCTOR: Nehemiah Merrill Interpretating Date/Time 12/31/2017 07:18:20
--- NOTE | 2017-12-31 07:32 | EKG ---
Date Performed: 12/30/2017 Time Performed: 04:12:50 PTAGE: 62 years EKG: SINUS TACHYCARDIA POSSIBLE LEFT ATRIAL ENLARGEMENT MARKED RIGHT AXIS DEVIATION RIGHT BUNDLE BRANCH BLOCK SEPTAL MYOCARDIAL INFARCTION ABNORMAL ECG PREVIOUS TRACING : 04/06/2017 05.19 DOCTOR: Nehemiah Merrill Interpretating Date/Time 12/31/2017 07:28:00
[2017-12-31 08:00] VITALS: BP 102/60; PULSE 98; RESP 22; TEMP 98; O2SAT 99
[2017-12-31] MEDS: INSULIN ASPART SUPPLEMENTAL SCALE SQ SCH ×2 (08:00→12:00)
--- NOTE | 2017-12-31 08:14 | EKG ---
Date Performed: 12/29/2017 Time Performed: 21:10:05 PTAGE: 62 years EKG: SINUS TACHYCARDIA POSSIBLE LEFT ATRIAL ENLARGEMENT RIGHT BUNDLE BRANCH BLOCK LEFT POSTERIOR FASCICULAR BLOCK ANTEROSEPTAL MYOCARDIAL INFARCTION ABNORMAL ECG NO PREVIOUS TRACING DOCTOR: Nehemiah Merrill Interpretating Date/Time 12/31/2017 08:12:20
[2017-12-31] MEDS ORDERED: FUROSEMIDE 20 MG TAB PO SCH (09:00)
[2017-12-31] MEDS: SODIUM CHLORIDE 0.9% FLUSH 10 ML FLUSH IV FLUSH SCH (09:00)
[2017-12-31] MEDS: POTASSIUM CHLORIDE 10 MEQ CONTROLLED RELEASE TAB PO SCH (09:00)
[2017-12-31] MEDS: AZITHROMYCIN 250 MG TAB PO SCH (09:34)
[2017-12-31] MEDS: cefTRIAXone INJ 2,000 MG in SODIUM CHLORIDE 0.9% INJ 100 ML IV SCH (09:34)
[2017-12-31] MEDS: DIGOXIN 0.125 MG TAB PO SCH (09:34)
[2017-12-31] MEDS: PRASUGREL 10 MG TAB PO SCH (09:35)
[2017-12-31] MEDS: CARVEDILOL 6.25 MG TAB PO SCH (09:35)
[2017-12-31] MEDS: ASPIRIN 81 MG CHEW TAB PO SCH (09:35)
--- NOTE | 2017-12-31 11:37 | PD.PN.STU ---
Subjective Remarks Hospital Day 3 for bilateral pneumonia, Mr. Miles feels well and would like to go home. He is not having shortness of breath or fever. He denies lower leg edema. 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 Objective Vitals Vital Signs Date Time Temp Pulse Resp B/P (MAP) Pulse Ox O2 Delivery O2 Flow Rate FiO2 12/31/17 08:00 98.0 98 22 102/60 (74) 99 12/31/17 05:45 97.3 103 17 101/61 (74) 99 12/31/17 00:15 98.6 75 16 98/56 (70) 99 12/30/17 23:55 87 12/30/17 21:40 98.1 80 17 96/58 (71) 98 12/30/17 20:00 100 12/30/17 16:00 97.7 95 18 92/57 (69) 99 12/30/17 14:30 90 18 92/54 (67) 97 Room Air 12/30/17 13:50 92 16 79/48 (58) 99 Room Air I/O 12/30/17 12/30/17 12/30/17 12/31/17 12/31/17 12/31/17 07:00 15:00 23:00 07:00 15:00 23:00 Intake Total 100 ml 100 ml 650 ml 950 ml 120 ml Balance 100 ml 100 ml 650 ml 950 ml 120 ml Intake Oral 650 ml 950 ml 120 ml IV Total 100 ml 100 ml # Voids 1 1 3 # Bowel Movements 1 0 Result Diagram: 12/30/17 1540 12/30/17 1540 Objective Remarks General - well developed, well nourished, NAD Pulmonology - equal bilateral breath sounds diminished bilateral bases. Dullness to percussion bilateral lung bases. No wheezes, crackles, or rhonchi. No use of accessory muscles. Cardiovascular - Regular rate and rhythm, no murmur. No swelling of lower legs. A/P Assessment and Plan Pneumonia - improving WBC trending down Blood cultures negative Urine cultures pending, Pt is nonsymptomatic D/C patient on PO antibiotics CHF -chronic, stable DM2 - chronic, stable Carlene Ford December 31, 2017 11:37
[2017-12-31 12:00] VITALS: BP 95/58; PULSE 98; RESP 22; TEMP 98; O2SAT 99
[2017-12-31] MEDS ORDERED: AZIT250T3 PO (13:46)
[2017-12-31] MEDS ORDERED: CEFU1TAB20 PO (13:46)
--- NOTE | 2017-12-31 13:46 | HHI.DS ---
Discharge Summary Admission Date December 29, 2017 at 23:09 Discharge Date: December 31, 2017 Admitting Diagnosis Bilateral pneumonia (1) Pneumonia ICD Code: J18.9 - Pneumonia, unspecified organism Status: Acute (2) CHF (congestive heart failure) ICD Code: I50.9 - Heart failure, unspecified Procedures None Brief History - From Admission Mr. Miles is a pleasant 62-year-old male with a history of CAD, CHF who presents to the emergency department on 12/29/2017 due to generalized weakness, should worsening shortness of breath and chest tightness that started few days ago. His chest discomfort is tightness in quality, midsternal and nonradiating. He denies any cough, fever but reports chills. Patient underwent cardiac cath with PCI 3 in March 2017 after he had NSTEMI. At the time of this interview, patient is on room air. Denies any chest pain, shortness of breath. No changes in bowel or bladder habits. On arrival temperature 100.2F pulse 117 respirations 16 blood pressure 112/56 pulse oximetry 100% on room air. WBC 19.4 with neutrophil count 87.1%, BUN 30 creatinine 1.8, BNP 1436. Chest x-ray reveals bilateral consolidative infiltrates left greater than right. CBC/BMP: 12/30/17 1540 12/30/17 1540 Significant Findings Laboratory Tests Test 12/29/17 21:25 12/30/17 04:05 12/30/17 10:40 12/30/17 15:40 White Blood Count 19.4 TH/MM3 (4.0-11.0) 14.0 TH/MM3 (4.0-11.0) Red Blood Count 4.02 MIL/MM3 (4.50-5.90) 3.47 MIL/MM3 (4.50-5.90) Hemoglobin 10.4 GM/DL (13.0-17.0) 9.1 GM/DL (13.0-17.0) Hematocrit 33.2 % (39.0-51.0) 28.8 % (39.0-51.0) Mean Corpuscular Hemoglobin 26.0 PG (27.0-34.0) 26.1 PG (27.0-34.0) Mean Corpuscular Hemoglobin Concent 31.4 % (32.0-36.0) 31.5 % (32.0-36.0) Neutrophils (%) (Auto) 87.1 % (16.0-70.0) Lymphocytes (%) (Auto) 1.7 % (9.0-44.0) Monocytes (%) (Auto) 10.8 % (0.0-8.0) Neutrophils # (Auto) 16.9 TH/MM3 (1.8-7.7) Lymphocytes # (Auto) 0.3 TH/MM3 (1.0-4.8) Monocytes # (Auto) 2.1 TH/MM3 (0-0.9) Prothrombin Time 12.0 SEC (9.8-11.6) Blood Urea Nitrogen 30 MG/DL (7-18) 37 MG/DL (7-18) Creatinine 1.80 MG/DL (0.60-1.30) 1.86 MG/DL (0.60-1.30) Random Glucose 178 MG/DL (74-106) 63 MG/DL (74-106) Chloride Level 108 MEQ/L (98-107) 108 MEQ/L (98-107) Estimat Glomerular Filtration Rate 38 ML/MIN (>89) 37 ML/MIN (>89) B-Type Natriuretic Peptide 1436 PG/ML (0-100) Calcium Level 8.1 MG/DL (8.5-10.1) Test 12/30/17 20:25 Urine Turbidity HAZY (CLEAR) Urine Protein 30 mg/dL (NEG-TRACE) Urine Occult Blood TRACE (NEG) Urine Leukocyte Esterase LARGE (NEG) Urine WBC Clumps MOD (NONE) Urine Bacteria RARE /hpf (NONE) Urine Mucus FEW /lpf (OCC) Imaging Last Impressions Chest X-Ray 12/29/172112 Signed Impressions: CONCLUSION: Bilateral consolidative infiltrates, left greater than right. PE at Discharge GENERAL: This is a well-nourished, well-developed patient, in no apparent distress. CARDIOVASCULAR: Normal rate and regular rhythm without murmurs, gallops, or rubs. RESPIRATORY: Good respiratory efforts. Faint expiratory wheezing at the bases bilaterally otherwise clear to auscultation. GASTROINTESTINAL: Abdomen soft, non-tender, non-distended. Normal active bowel sounds MUSCULOSKELETAL: Extremities without cyanosis, or edema. NEURO: Alert & Oriented x4 to person, place, time, situation. Moves all ext x4 PSYCH: Appropriate mood and affect. Pt update on day of discharge Patient reports he is feeling great and wants to go home. He denies shortness of breath or chest pain. He denies any cough. He states he feels good to go home. Hospital Course 62-year-old male with a history of CHF, CAD status post PCI 3 who presents to the emergency department due to chest discomfort which is midsternal and nonradiating. Upon arrival he was found to have leukocytosis, low-grade temperature and radiological evidence of bilateral pneumonia. BNP is elevated to 1436. The patient has admitted and treated for bilateral pneumonia and acute exacerbation of systolic CHF. His condition improved significantly. He was asymptomatic by the time of discharge. He is discharged on oral antibiotics to complete the course of treatment. The patient can resume home dose medication for CHF. Pt Condition on Discharge: Good Discharge Disposition: Discharge Home Discharge Time: <= 30 minutes Discharge Instructions DIET: Follow Instructions for: Heart Healthy Diet Activities you can perform: Regular-No Restrictions Follow up Referrals: PCP Follow-up - 1 Week New Medications: Cefuroxime (Cefuroxime) 500 Mg Tab 500 MG PO BID for Infection, #8 TAB 0 Refills Azithromycin (Azithromycin) 250 Mg Tab 250 MG PO DAILY, #3 TAB Continued Medications: Aspirin (Aspirin Low Strength) 81 Mg Chew 162 MG PO DAILY for cad for 30 Days, #60 EA Atorvastatin (Atorvastatin) 40 Mg Tab 40 MG PO HS for cad for 30 Days, #30 TAB Carvedilol (Coreg) 6.25 Mg Tab 6.25 MG PO Q12HR for cad for 30 Days, #60 TAB Digoxin (Digoxin) 0.125 Mg Tab 0.125 MG PO DAILY for CHF for 30 Days, #30 TAB Furosemide (Furosemide) 20 Mg Tab 20 MG PO BID@09,18 for chf for 30 Days, #60 TAB Potassium Chloride ER (Klor-Con 10) 10 Meq Tab 10 MEQ PO BID for lasix for 30 Days, #60 TAB Prasugrel (Effient) 10 Mg Tab 10 MG PO DAILY for stent for 30 Days, #30 TAB 0 Refills Ramipril (Ramipril) 5 Mg Cap 5 MG PO DAILY for chf for 30 Days, #30 CAP Sitagliptin-Metformin (Janumet) 50-1,000 Mg Tab 1 TAB PO BID for Blood Sugar Management, #60 TAB 0 Refills Andie Ng MD December 31, 2017 13:46
[2017-12-31 14:35] LABS: AUTOMATED NEUTROPHIL # 4.4 TH/MM3 (1.8-7.7); BASOPHIL % 0.4 % (0.0-2.0); EOSINOPHIL # 0.1 TH/MM3 (0-0.4); EOSINOPHIL % 2.6 % (0.0-4.0); HEMATOCRIT 28.6 % (39.0-51.0); HEMOGLOBIN 9.1 GM/DL (13.0-17.0); LYMPH % 6.6 % (9.0-44.0); LYMPHOCYTE # 0.4 TH/MM3 (1.0-4.8); MEAN CELL VOLUME 82.7 FL (80.0-100.0); MEAN CORPUSCULAR HEMOGLOBIN 26.3 PG (27.0-34.0); MEAN CORPUSCULAR HGB CONC 31.8 % (32.0-36.0); MEAN PLATELET VOLUME 8.7 FL (7.0-11.0); MONO % 12.5 % (0.0-8.0); MONOCYTE # 0.7 TH/MM3 (0-0.9); NEUT % 77.9 % (16.0-70.0); PLATELET COUNT 166 TH/MM3 (150-450); RED BLOOD COUNT 3.45 MIL/MM3 (4.50-5.90); WHITE BLOOD COUNT 5.6 TH/MM3 (4.0-11.0)
[2017-12-31 15:11] LABS: CREATININE 1.77 MG/DL (0.60-1.30)
== END 2017-12-31 14:25 | disposition home or self-care (01) | DRG 291 ==
LOC: NEPC 19:39 → NEDA 23:09 → NEDH 12-30 03:09 → N05B 12-30 16:07
PROVIDERS: ADMIT Family Medicine; ATTEND Family Medicine
DX: I50.21 Acute systolic (congestive) heart failure (principal); J18.9 Pneumonia, unspecified organism; I25.10 Atherosclerotic heart disease of native coronary artery without angina pectoris; I25.5 Ischemic cardiomyopathy; I25.2 Old myocardial infarction; Z95.5 Presence of coronary angioplasty implant and graft; Z79.82 Long term (current) use of aspirin; Z79.899 Other long term (current) drug therapy
CPT/HCPCS: 71045; 80048; 80162; 81001; 82948; 83605; 83735; 83880; 84145; 84484; 85025; 85027; 85610; 85730; 87040; 87086; 87804; 93005; 96365; J0696; J1650; J1815